=== PATIENT | male | born 1965 | race Caucasian/White ===

== ENCOUNTER 2019-07-19 12:40 | Emergency (ER) | payer OTHER ==
[~2019-07-19] VITALS: Ht 185.4 cm; Wt 77.1 kg
[2019-07-19 14:01] LABS: Basophils # (auto) 0 uL; Basophils % (auto) 0.7 % (0.0-2.0); Eosinophils # (auto) 0 uL; Hematocrit 43.9 % (41.0-53.0); Hemoglobin 15.1 g/dL (13.5-17.5); Lymphocytes # (auto) 0.6 uL; Lymphocytes % (auto) 19.2 % (10.0-50.0); Mean Corpuscular Hemoglobin 31.6 pg (28.0-32.0); Mean Corpuscular Hgb Conc. 34.4 g/dL (32.0-36.0); Monocytes # (auto) 0.2 uL; Monocytes % (auto) 7.4 % (0.0-12.0); Neutrophils # (auto) 2.3 uL; Neutrophils % (auto) 72.7 % (37.0-80.0); Nucleated Red Blood Cells % 0.1 %; Platelet Count (auto) 123 10^3/uL (140-450); Red Blood Cells 4.77 10^6/uL (4.5-5.90); White Blood Cell 3.1 10^3/uL (4.4-10.8)
[2019-07-19 14:20] LABS: Albumin 3.6 g/dL (3.4-5.0); Anion Gap 9 (5-15); Blood Urea Nitrogen 21 mg/dL (7-18); Calcium 8.4 mg/dL (8.5-10.1); Carbon Dioxide 23 mmol/L (21-32); Chloride 98 mmol/L (98-107); Glucose 98 mg/dL (74-106); Sodium 130 mmol/L (136-145)
[2019-07-19 14:25] LABS: Alanine Aminotransferase 34 U/L (16-61); Alkaline Phosphatase 89 U/L (45-117); Aspartate Aminotransferase 52 U/L (15-37); BUN/Creatinine Ratio 18.1; Bilirubin, Total 0.4 mg/dL (0.2-1.0); GFR African American 85 mL/min; GFR Non-African American 70 mL/min; Total Protein 7.4 g/dL (6.4-8.2)
[2019-07-19 14:27] VITALS: BP 109/74
[2019-07-19] MEDS ORDERED: levoFLOXacin 500MG 100 ML IV ONE (14:45)
[2019-07-19] MEDS ORDERED: IPRATROPIUM BROM 0.5 MG/2.5ML INH SOL NEB ONE (14:45)
[2019-07-19] MEDS ORDERED: ALBUTEROL SULF 2.5 MG/0.5ML(0.5%) NEB SOLN NEB ONE (14:45)
[2019-07-19] MEDS ORDERED: methylPREDNISolone SOD SUCC 125 MG/2 ML VL IV ONE (14:45)
== END 2019-07-19 16:30 | disposition home or self-care (01) ==
LOC: ER 12:45
DX: J44.1 Chronic obstructive pulmonary disease with (acute) exacerbation (principal); F17.210 Nicotine dependence, cigarettes, uncomplicated; Z86.711 Personal history of pulmonary embolism
CPT/HCPCS: 36415; 71046; 80053; 84484; 85025; 93005; 94640; 96365; 96375; 99285; J1956; J2930; J7611; J7644

== ENCOUNTER 2019-07-26 20:29 | Inpatient (IN) | payer OTHER ==
[~2019-07-26] VITALS: Ht 182.9 cm; Wt 62.0 kg
[2019-07-26] MEDS ORDERED: methylPREDNISolone SOD SUCC 125 MG/2 ML VL IV ONE (21:30)
[2019-07-26] MEDS ORDERED: ALBUTEROL SULF 2.5 MG/0.5ML(0.5%) NEB SOLN HHN ONE (21:30)
[2019-07-26] MEDS ORDERED: IPRATROPIUM BROM 0.5 MG/2.5ML INH SOL HHN ONE (21:30)
[2019-07-26 22:33] LABS: Basophils # (auto) 0 uL; Basophils % (auto) 0.2 % (0.0-2.0); Eosinophils # (auto) 0 uL; Hematocrit 41.4 % (41.0-53.0); Lymphocytes # (auto) 0.4 uL; Lymphocytes % (auto) 2.2 % (10.0-50.0); Mean Corpuscular Hemoglobin 30.6 pg (28.0-32.0); Mean Corpuscular Hgb Conc. 33.7 g/dL (32.0-36.0); Monocytes # (auto) 1.6 uL; Monocytes % (auto) 8.3 % (0.0-12.0); Neutrophils # (auto) 17.7 uL; Neutrophils % (auto) 89.3 % (37.0-80.0); Platelet Count (auto) 337 10^3/uL (140-450); Red Blood Cells 4.56 10^6/uL (4.5-5.90); Red Cell Distribution Width 13.1 % (11.8-14.3); White Blood Cell 19.8 10^3/uL (4.4-10.8)
[2019-07-26 22:49] LABS: Albumin 2.5 g/dL (3.4-5.0); Anion Gap 8 (5-15); Blood Urea Nitrogen 21 mg/dL (7-18); Calcium 8.2 mg/dL (8.5-10.1); Carbon Dioxide 22 mmol/L (21-32); Chloride 94 mmol/L (98-107); Glucose 151 mg/dL (74-106); Potassium 4.1 mmol/L (3.5-5.1); Sodium 124 mmol/L (136-145)
[2019-07-26 22:52] LABS: Alanine Aminotransferase 23 U/L (16-61); Aspartate Aminotransferase 13 U/L (15-37); BUN/Creatinine Ratio 19.1; GFR African American 90 mL/min; GFR Non-African American 74 mL/min
[2019-07-26 22:57] LABS: Alkaline Phosphatase 93 U/L (45-117); Bilirubin, Total 0.9 mg/dL (0.2-1.0); Total Protein 7.5 g/dL (6.4-8.2)
[2019-07-27] MEDS ORDERED: PIPERACILLIN-TAZOB 3.375GM 100 ML IV ONE (01:30)
[2019-07-27] MEDS: SODIUM CHLORIDE 0.9% 1,000 ML IV SCH ×2 (03:06→18:26)
[2019-07-27] MEDS: levoFLOXacin 750MG 150 ML IV SCH (03:28)
[2019-07-27] MEDS: HYDROcodone-ACET 5/325MG TAB PO PRN ×2 (04:14→21:20)
[2019-07-27] MEDS: ALBUTEROL SULF 2.5 MG/0.5ML(0.5%) NEB SOLN NEB SCH ×3 (05:45→19:20)
[2019-07-27 06:11] VITALS: BP 104/64
[2019-07-27] MEDS: FAMOTIDINE 20 MG TAB PO SCH ×2 (09:50→21:20)
[2019-07-27 13:12] LABS: Basophils # (auto) 0 uL; Basophils % (auto) 0.3 % (0.0-2.0); Eosinophils # (auto) 0 uL; Eosinophils % (auto) 0.1 % (0.0-7.0); Hematocrit 42.5 % (41.0-53.0); Lymphocytes # (auto) 0.4 uL; Mean Corpuscular Hemoglobin 30.4 pg (28.0-32.0); Mean Corpuscular Hgb Conc. 32.9 g/dL (32.0-36.0); Mean Corpuscular Volume 92.5 fL (80.0-100.0); Monocytes # (auto) 1.3 uL; Monocytes % (auto) 6.7 % (0.0-12.0); Neutrophils # (auto) 17.5 uL; Neutrophils % (auto) 90.9 % (37.0-80.0); Platelet Count (auto) 362 10^3/uL (140-450); Red Cell Distribution Width 13.2 % (11.8-14.3); White Blood Cell 19.2 10^3/uL (4.4-10.8)
[2019-07-27 13:31] LABS: Alanine Aminotransferase 25 U/L (16-61); Albumin 2.2 g/dL (3.4-5.0); Anion Gap 8 (5-15); Aspartate Aminotransferase 15 U/L (15-37); Blood Urea Nitrogen 23 mg/dL (7-18); Calcium 8.4 mg/dL (8.5-10.1); Carbon Dioxide 23 mmol/L (21-32); Chloride 95 mmol/L (98-107); GFR African American 86 mL/min; GFR Non-African American 71 mL/min; Glucose 201 mg/dL (74-106); Potassium 5.3 mmol/L (3.5-5.1); Sodium 126 mmol/L (136-145)
[2019-07-27 13:34] LABS: Alkaline Phosphatase 97 U/L (45-117); Bilirubin, Total 0.6 mg/dL (0.2-1.0); Total Protein 7.4 g/dL (6.4-8.2)
[2019-07-27] MEDS ORDERED: VANCOMYCIN PER PHARMACY 0 MG IV SCH (15:15)
[2019-07-27] MEDS ORDERED: ENOXAPARIN SOD 40 MG/0.4 ML SYRINGE SC ONE (15:15)
[2019-07-27] MEDS ORDERED: FUROSEMIDE 40 MG/4 ML VIAL IV ONE (15:15)
--- NOTE | 2019-07-27 15:15 | NUR ---
MS admit from ER HEATHERMONTEZ admitted to tele/MS after SBAR received. Patient oriented to OMERO NATHAN, primary RN, unit, room, bed, and unit policies regarding patient care and visiting hours. patient alert and awake sitting up in bed. Pt having some shortness of breath and requesting a breathing treatment, RT paged. Pt is on 3 L NC. Bed is in lowest position, wheels are locked, side rails up x2, and call light is within reach. Patient weighed by bed scale and encouraged to call if they need something. All questions and concerns addressed, patient verbalized understanding.
[2019-07-27] MEDS ORDERED: VANCOMYCIN 1GM/250ML 250 ML IV ONE (15:30)
[2019-07-27] MEDS: VANCOMYCIN 1GM/250ML 250 ML IV SCH (16:00)
[2019-07-27 16:24] VITALS: BP 127/81
[2019-07-27] MEDS ORDERED: INFLUENZA QUAD 2019-2020 0.5ml SYRG IM ONE (16:30)
[2019-07-27] MEDS ORDERED: PNEUMOCOCCAL VACC POLYS 25 MCG/0.5 ML VIAL IM ONE (16:30)
[2019-07-27] MEDS ORDERED: ENOXAPARIN SOD 30 MG/0.3 ML SYRINGE SC ONE (17:00)
[2019-07-27] MEDS ORDERED: predniSONE 20 MG TAB PO ONE (17:00)
[2019-07-27] MEDS ORDERED: IOHEXOL 350 MG/ML 100ML IJ ONE (17:06)
[2019-07-27] MEDS: PIPERACILLIN-TAZOB 3.375GM 100 ML IV SCH (18:27)
--- NOTE | 2019-07-27 19:21 | NUR ---
Closing Note Patient awake and alert sitting up in bed. No S/S of distress/SOB or pain. Care endorsed to Allie SABILLON RN.
--- NOTE | 2019-07-27 19:25 | NUR ---
Opening Shift Note Assumed care of patient, awake and alert. Instructed on POC and to call for assist PRN, will continue to monitor for changes Q1hr and PRN. PATIENT RESTING IN BED, WITH CALL LIGHT IN REACH, BED IN LOWEST POSITION AND SIDE RALES UP X2.
[2019-07-27 20:10] VITALS: BP 128/77
[2019-07-27 21:22] VITALS: BP 128/77
[2019-07-28] VITALS (7 sets, daily range): BP systolic 91–127; BP diastolic 46–80
[2019-07-28] MEDS: PIPERACILLIN-TAZOB 3.375GM 100 ML IV SCH ×5 (00:04→23:55)
[2019-07-28] MEDS: ALBUTEROL SULF 2.5 MG/0.5ML(0.5%) NEB SOLN NEB SCH ×3 (00:30→12:00)
[2019-07-28] MEDS: levoFLOXacin 750MG 150 ML IV SCH (02:51)
[2019-07-28] MEDS: ONDANSETRON HCL 4 MG/2 ML VIAL IV PRN ×2 (02:52→05:57)
[2019-07-28] MEDS: SODIUM CHLORIDE 0.9% 1,000 ML IV SCH ×2 (04:26→18:30)
[2019-07-28] MEDS: VANCOMYCIN 1GM/250ML 250 ML IV SCH ×2 (04:26→16:58)
[2019-07-28] MEDS: HYDROcodone-ACET 5/325MG TAB PO PRN ×2 (04:27→10:54)
[2019-07-28 07:36] LABS: BUN/Creatinine Ratio 27.6; Calcium 8.3 mg/dL (8.5-10.1); Potassium 4.1 mmol/L (3.5-5.1)
--- NOTE | 2019-07-28 07:48 | NUR ---
RECEIVED REPORT AND ASSUMED CARE OF PT. A/OX4. DENIED S/S ACUTE DISTRESS. UPDATE PT WITH POC. BED AT LOWEST POSITION. CALL LIGHT AND BELONGINGS WITHIN REACH. WILL CONT TO MONITOR.
[2019-07-28 07:55] LABS: Basophils # (auto) 0.1 uL; Basophils % (auto) 0.3 % (0.0-2.0); Eosinophils # (auto) 0 uL; Hematocrit 36.8 % (41.0-53.0); Hemoglobin 12.4 g/dL (13.5-17.5); Lymphocytes # (auto) 0.5 uL; Lymphocytes % (auto) 2.6 % (10.0-50.0); Mean Corpuscular Hemoglobin 30.7 pg (28.0-32.0); Mean Corpuscular Hgb Conc. 33.7 g/dL (32.0-36.0); Mean Corpuscular Volume 91.3 fL (80.0-100.0); Monocytes # (auto) 1.1 uL; Monocytes % (auto) 6.2 % (0.0-12.0); Neutrophils # (auto) 16.2 uL; Neutrophils % (auto) 90.9 % (37.0-80.0); Platelet Count (auto) 377 10^3/uL (140-450); Red Blood Cells 4.03 10^6/uL (4.5-5.90); Red Cell Distribution Width 13.1 % (11.8-14.3); White Blood Cell 17.8 10^3/uL (4.4-10.8)
[2019-07-28] MEDS ORDERED: SODIUM CHL 0.9% 1000 ML BAG XX ONE (10:30)
[2019-07-28] MEDS: ENOXAPARIN SOD 40 MG/0.4 ML SYRINGE SC SCH (10:54)
[2019-07-28] MEDS: FAMOTIDINE 20 MG TAB PO SCH ×2 (10:55→22:26)
[2019-07-28] MEDS: predniSONE 20 MG TAB PO SCH (10:55)
--- NOTE | 2019-07-28 11:50 | NUR ---
ABG DRAWN PER DR HUGHES'S ORDERS. RESULTS TO FOLLOW
--- NOTE | 2019-07-28 19:03 | NUR ---
PT RESTING IN BED. NO S/S ACUTE DISTRESS NOTED. ENDORSED CARE TO NIGHT NURSE.
--- NOTE | 2019-07-28 19:25 | NUR ---
Opening Shift Note Assumed care of patient, awake and alert. No S/S of distress/SOB or pain. Instructed on POC and to call for assist PRN, will continue to monitor for changes Q1hr and PRN. PATIENT RESTING IN BED, CALL LIGHT IN HAND, BED IN LOWEST POSITION, SIDE RALES UP X2.
[2019-07-28] MEDS: TEMAZEPAM 15 MG CAP PO PRN (22:27)
[2019-07-29] MEDS: ALBUTEROL SULF 2.5 MG/0.5ML(0.5%) NEB SOLN NEB SCH ×4 (00:14→17:58)
[2019-07-29] MEDS: levoFLOXacin 750MG 150 ML IV SCH (02:54)
[2019-07-29] MEDS: VANCOMYCIN 1GM/250ML 250 ML IV SCH ×3 (04:18→21:58)
[2019-07-29] MEDS: HYDROcodone-ACET 5/325MG TAB PO PRN ×2 (04:35→19:58)
[2019-07-29 05:00] VITALS: BP 93/50
[2019-07-29 05:54] LABS: BUN/Creatinine Ratio 29.2; Calcium 8.4 mg/dL (8.5-10.1); Potassium 4.7 mmol/L (3.5-5.1)
[2019-07-29] MEDS: PIPERACILLIN-TAZOB 3.375GM 100 ML IV SCH ×2 (06:14→12:41)
[2019-07-29] MEDS: SODIUM CHLORIDE 0.9% 1,000 ML IV SCH ×2 (07:50→21:10)
[2019-07-29 08:45] VITALS: BP 96/54
[2019-07-29] MEDS: predniSONE 20 MG TAB PO SCH (09:36)
[2019-07-29] MEDS: FAMOTIDINE 20 MG TAB PO SCH ×2 (09:36→21:59)
[2019-07-29] MEDS: ENOXAPARIN SOD 40 MG/0.4 ML SYRINGE SC SCH (09:36)
--- NOTE | 2019-07-29 12:00 | NUR ---
MIGUEL REYES REGARDING ORDER FOR DIALYSIS. AWAITING CALL BACK.
[2019-07-29 12:44] VITALS: BP 104/52
--- NOTE | 2019-07-29 15:15 | NUR ---
MIGUEL REYES REGARDING PATIENT ORDER FOR DIALYSIS AND PATIENT REPORTS NO BOWEL MOVEMENT SINCE 07/24/19. AWAITING CALL BACK.
[2019-07-29 16:33] VITALS: BP 114/70
--- NOTE | 2019-07-29 17:10 | NUR ---
SPOKE TO Kaylynn REYES REGARDING ORDER FOR DIALYSIS. INSTRUCTED TO CANCEL ORDER. INFORMED OF NO BOWEL MOVEMENT SINCE 07/24. RECEIVED ORDERS FOR LACTULOSE 30ML BID UNTIL PATIENT HAS BOWEL MOVEMENT. WILL FOLLOW THROUGH.
--- NOTE | 2019-07-29 19:10 | NUR ---
Opening Shift Note Assumed care of patient, awake and alert. No S/S of distress/SOB or pain. Instructed on POC and to call for assist PRN, will continue to monitor for changes Q1hr and PRN. PATIENT RESTING IN BED, CALL LIGHT AT HIS SIDE WITHIN REACH, BED IN LOWEST POSITION, SIDE RALES UP X2.
[2019-07-29] MEDS: LACTULOSE 20Gm/30ML SOLN PO SCH (21:59)
[2019-07-29 22:00] VITALS: BP 112/70
[2019-07-29] MEDS: TEMAZEPAM 15 MG CAP PO PRN (22:00)
[2019-07-29 23:35] LABS: Urine Bacteria FEW /hpf (None Seen); Urine Blood Negative /uL (Negative); Urine Hyaline Cast FEW /lpf (0 - 2); Urine Specific Gravity 1.026 (1.001-1.035); Urine WBC 7 /hpf (0 - 3)
[2019-07-29 23:50] LABS: Amphetamine Screen, Urine NEGATIVE (NEGATIVE); Barbiturate Scree,Urine NEGATIVE (NEGATIVE); Benzodiazephine Screen, Urine NEGATIVE (NEGATIVE); Cannabinoid Screen, Urine POSITIVE (NEGATIVE); Cocaine Screen, Urine NEGATIVE (NEGATIVE); Opiate Scree,Urine NEGATIVE (NEGATIVE); Phencyclidine Screen, Urine NEGATIVE (NEGATIVE)
[2019-07-29 23:51] LABS: Protein, Urine 70.2 mg/dL (0.0-11.9)
[2019-07-30] MEDS: ALBUTEROL SULF 2.5 MG/0.5ML(0.5%) NEB SOLN NEB SCH ×4 (00:04→18:55)
[2019-07-30] MEDS: VANCOMYCIN 1GM/250ML 250 ML IV SCH ×4 (03:12→17:45)
[2019-07-30] MEDS: levoFLOXacin 750MG 150 ML IV SCH (03:14)
[2019-07-30] MEDS: HYDROcodone-ACET 5/325MG TAB PO PRN (04:03)
[2019-07-30 05:00] VITALS: BP 125/69
[2019-07-30 05:20] LABS: BUN/Creatinine Ratio 24.1; Calcium 8.3 mg/dL (8.5-10.1)
[2019-07-30 06:04] LABS: Basophils # (auto) 0.1 uL; Basophils % (auto) 1.2 % (0.0-2.0); Eosinophils # (auto) 0 uL; Hematocrit 40.7 % (41.0-53.0); Hemoglobin 13.4 g/dL (13.5-17.5); Lymphocytes # (auto) 0.9 uL; Lymphocytes % (auto) 7.9 % (10.0-50.0); Mean Corpuscular Hemoglobin 30.9 pg (28.0-32.0); Mean Corpuscular Hgb Conc. 32.8 g/dL (32.0-36.0); Mean Corpuscular Volume 94.1 fL (80.0-100.0); Monocytes # (auto) 0.9 uL; Monocytes % (auto) 7.4 % (0.0-12.0); Neutrophils # (auto) 9.9 uL; Neutrophils % (auto) 83.5 % (37.0-80.0); Platelet Count (auto) 331 10^3/uL (140-450); Red Blood Cells 4.33 10^6/uL (4.5-5.90); Red Cell Distribution Width 13.9 % (11.8-14.3); White Blood Cell 11.9 10^3/uL (4.4-10.8)
--- NOTE | 2019-07-30 07:42 | NUR ---
VANCOMYCIN NOT ADMINISTERED ON TIME VANCOMYCIN WAS HUNG BUT DID NOT RUN, RESTARTED AT 0743.
[2019-07-30 08:51] VITALS: BP 125/69
[2019-07-30 09:00] VITALS: BP 104/62
--- NOTE | 2019-07-30 09:53 | NUR ---
RECEIVED CRITICAL VANCOMYCIN 34.2 INFORMED Kaylynn ZAMORA. ORDERED TO CHECK VANCOMYCIN AGAIN AT 1400PM
[2019-07-30] MEDS: LACTULOSE 20Gm/30ML SOLN PO SCH ×2 (10:30→22:20)
[2019-07-30] MEDS: FAMOTIDINE 20 MG TAB PO SCH ×2 (10:30→22:20)
[2019-07-30] MEDS: predniSONE 20 MG TAB PO SCH (10:30)
[2019-07-30 10:58] LABS: BUN/Creatinine Ratio 23.8; Calcium 8.6 mg/dL (8.5-10.1); Potassium 4.5 mmol/L (3.5-5.1)
[2019-07-30] MEDS: ENOXAPARIN SOD 40 MG/0.4 ML SYRINGE SC SCH (11:37)
[2019-07-30] MEDS: SODIUM CHLORIDE 0.9% 1,000 ML IV SCH ×2 (11:37→23:50)
[2019-07-30 13:00] VITALS: BP 87/68
--- NOTE | 2019-07-30 15:28 | NUR ---
NUTRITION ASSESSMENT NOTES Please refer to link notes of nutrition screen form filed under the intervention section of the plan of care for further details. Est. Needs based on IBW (81 kg): 2050 kcal to 2450 kcal (25-30 kcal/kgIBW), 81 gms to 97 gms pro (1.0-1.2 gms/kgIBW). Will continue to monitor pertinent labs and reassess nutrient needs prn Thank you. Addendum: 07/30/19 at [address] Amended: Links added.
[2019-07-30] MEDS ORDERED: VANCOMYCIN 1GM/250ML 250 ML IV SCH (16:00)
[2019-07-30 17:00] VITALS: BP 106/73
[2019-07-30 22:00] VITALS: BP 132/77
[2019-07-30] MEDS: TEMAZEPAM 15 MG CAP PO PRN (22:20)
[2019-07-31] MEDS: ALBUTEROL SULF 2.5 MG/0.5ML(0.5%) NEB SOLN NEB SCH ×4 (00:44→18:58)
[2019-07-31] MEDS: VANCOMYCIN 1GM/250ML 250 ML IV SCH (01:59)
[2019-07-31] MEDS: levoFLOXacin 750MG 150 ML IV SCH (03:16)
[2019-07-31 05:00] VITALS: BP 114/63
[2019-07-31 05:39] LABS: Basophils # (auto) 0 uL; Basophils % (auto) 0.1 % (0.0-2.0); Eosinophils # (auto) 0 uL; Hematocrit 36.8 % (41.0-53.0); Hemoglobin 12.1 g/dL (13.5-17.5); Lymphocytes # (auto) 0.7 uL; Lymphocytes % (auto) 5.6 % (10.0-50.0); Mean Corpuscular Hemoglobin 30.7 pg (28.0-32.0); Monocytes # (auto) 0.7 uL; Monocytes % (auto) 5.4 % (0.0-12.0); Neutrophils # (auto) 10.9 uL; Neutrophils % (auto) 88.9 % (37.0-80.0); Nucleated Red Blood Cells % 0.4 %; Platelet Count (auto) 320 10^3/uL (140-450); Red Blood Cells 3.96 10^6/uL (4.5-5.90); Red Cell Distribution Width 14.2 % (11.8-14.3); White Blood Cell 12.2 10^3/uL (4.4-10.8)
[2019-07-31 06:02] LABS: BUN/Creatinine Ratio 22.8; Potassium 3.8 mmol/L (3.5-5.1)
[2019-07-31 06:14] LABS: INR 1.19 (0.9-1.15); Partial Thromboplastin Time 29.3 sec (23.64-32.05)
--- NOTE | 2019-07-31 07:53 | NUR ---
OPENING SHIFT NOTE Assumed care of patient. PT is awake and alert. AWAITING CALL FROM GRAIN MILL WORKER FOR SCHEDULED PROCEDURE. Instructed on POC and to call for assist PRN, will continue to monitor for changes Q1hr and PRN. PATIENT RESTING IN BED, WITH CALL LIGHT IN REACH, BED IN LOWEST POSITION AND SIDE RALES UP X2.
--- NOTE | 2019-07-31 08:00 | NUR ---
TRANSPORTING PT TO SURFBOARD MAKER FOR SCHEDULED PROCEDURE. PT RESTING COMFORTABLY. PT ON 6L O2 VIA NC. RESPIRATIONS 24/MIN. NO SIGNS OF DISTRESS NOTED.
[2019-07-31] MEDS ORDERED: fentaNYL CITRATE 100 MCG/2 ML VL IV ONE (08:15)
[2019-07-31] MEDS ORDERED: LIDOCAINE VISCOUS 2% 15ML UD PO ONE (08:15)
[2019-07-31] MEDS ORDERED: MIDAZOLAM HCL 1MG/1ML-2 ML VIAL IV ONE (08:15)
--- NOTE | 2019-07-31 08:30 | NUR ---
NOTE: RECEIVED PATIENT IN THERMAL SPRAY OPERATOR WITH INCREASED RESPIRATORY RATE AND ON 6-7LPM NASAL CANNULA. SP02 97%, PATIENT HAS STRONG PRODUCTIVE COUGH. NOTIFIED DR HAHN OF PATIENT'S STATUS. DR HAHN ARRIVED ST BEDSIDE AND ASSESSED PATIENT. RECEIVED ORDERS FOR STAT ABG AND CANCELLATION OF NILE AT THIS TIME. PATIENT REPORT GIVEN TO PRIMARY RN WILL AND ENDORSED BACK.
--- NOTE | 2019-07-31 08:40 | NUR ---
RT AT BEDSIDE, ABG DRAWN. RESULTS TO FOLLOW
--- NOTE | 2019-07-31 08:45 | NUR ---
RECEIVED PT BACK FROM CONSULTING ACTUARY. O2 SET AT 6L VIA NC. RESPIRATIONS AT 40/MIN. CONSULTING ACTUARY NURSES STATED PT COULD NOT HAVE PROCEDURE AT THIS TIME PER DR HAHN. STAT ABG ORDERED. Addendum: 07/31/19 at 0902 by MANN DAVIS RN PT SAT AT 93%. ABG PERFORMED. RT REPORTED NORMAL. WILL NOTIFY
[2019-07-31 09:00] VITALS: BP 100/58
--- NOTE | 2019-07-31 09:12 | NUR ---
CALLED AND REPORTED ABG RESULTS TO DR ZAMORA. NO NEW ORDERS RECEIVED. PER , AWAIT CONSULT FROM DR HUGHES. WILL CONTINUE TO MONITOR PT.
[2019-07-31] MEDS ORDERED: metroNIDAZOLE 500MG/100ML 100 ML IV ONE (10:30)
[2019-07-31] MEDS ORDERED: FUROSEMIDE 40 MG/4 ML VIAL IV ONE (10:30)
[2019-07-31] MEDS: FAMOTIDINE 20 MG TAB PO SCH ×2 (10:44→22:21)
[2019-07-31] MEDS: LACTULOSE 20Gm/30ML SOLN PO SCH ×2 (10:44→22:00)
[2019-07-31] MEDS: ENOXAPARIN SOD 40 MG/0.4 ML SYRINGE SC SCH (10:45)
[2019-07-31] MEDS: LINEZOLID 600MG/300ML 300 ML IV SCH ×2 (10:46→22:22)
[2019-07-31 13:00] VITALS: BP 108/67
[2019-07-31] MEDS: metroNIDAZOLE 500MG/100ML 100 ML IV SCH ×2 (15:25→21:10)
[2019-07-31 17:00] VITALS: BP 107/50
[2019-07-31] MEDS: FUROSEMIDE 40 MG/4 ML VIAL IV SCH (18:16)
[2019-07-31] MEDS: ACETAMINOPHEN 325 MG TAB PO PRN (18:17)
--- NOTE | 2019-07-31 19:03 | NUR ---
PT REPORTED PHONE NUMBER OF BROTHER ([email or web address]). UPDATED FAMILY CONTACT INFO IN CHART.
--- NOTE | 2019-07-31 19:30 | NUR ---
assumed care, pt. awake, weak in appearance, instructed pt. npo after mn, no c/o pain, not in distress.
[2019-07-31 22:00] VITALS: BP 124/83
[2019-08-01] MEDS: ALBUTEROL SULF 2.5 MG/0.5ML(0.5%) NEB SOLN NEB SCH ×4 (00:16→17:59)
[2019-08-01 05:00] VITALS: BP 98/55
[2019-08-01 05:27] LABS: INR 1.23 (0.9-1.15)
[2019-08-01] MEDS: FUROSEMIDE 40 MG/4 ML VIAL IV SCH (05:35)
[2019-08-01] MEDS: metroNIDAZOLE 500MG/100ML 100 ML IV SCH ×3 (05:35→21:41)
[2019-08-01 05:36] LABS: BUN/Creatinine Ratio 28.7; Calcium 7.5 mg/dL (8.5-10.1); Potassium 3.6 mmol/L (3.5-5.1)
[2019-08-01 05:52] LABS: Basophils # (auto) 0 uL; Basophils % (auto) 0.1 % (0.0-2.0); Eosinophils # (auto) 0 uL; Hematocrit 34.3 % (41.0-53.0); Hemoglobin 11.6 g/dL (13.5-17.5); Lymphocytes # (auto) 0.7 uL; Lymphocytes % (auto) 4.7 % (10.0-50.0); Mean Corpuscular Hemoglobin 31.1 pg (28.0-32.0); Mean Corpuscular Hgb Conc. 33.9 g/dL (32.0-36.0); Mean Corpuscular Volume 91.7 fL (80.0-100.0); Monocytes # (auto) 0.6 uL; Neutrophils # (auto) 12.9 uL; Neutrophils % (auto) 91.2 % (37.0-80.0); Platelet Count (auto) 281 10^3/uL (140-450); Red Blood Cells 3.74 10^6/uL (4.5-5.90); Red Cell Distribution Width 13.8 % (11.8-14.3); White Blood Cell 14.1 10^3/uL (4.4-10.8)
--- NOTE | 2019-08-01 07:38 | NUR ---
OPENING SHIFT NOTE Assumed care of patient. PT is awake and alert. PT ready for procedure. Consents are signed. Instructed on POC and to call for assist PRN, will continue to monitor for changes Q1hr and PRN. PATIENT RESTING IN BED, WITH CALL LIGHT IN REACH, BED IN LOWEST POSITION AND SIDE RALES UP X2. Will continue to monitor Q1HR and PRN.
[2019-08-01 08:39] VITALS: BP 98/56
[2019-08-01] MEDS: LACTULOSE 20Gm/30ML SOLN PO SCH ×2 (10:00→21:42)
[2019-08-01] MEDS: LINEZOLID 600MG/300ML 300 ML IV SCH ×2 (12:17→23:00)
[2019-08-01] MEDS: levoFLOXacin 500 MG TAB PO SCH (12:18)
[2019-08-01] MEDS: FAMOTIDINE 20 MG TAB PO SCH ×2 (12:18→21:42)
[2019-08-01] MEDS: ENOXAPARIN SOD 40 MG/0.4 ML SYRINGE SC SCH (12:18)
[2019-08-01 12:53] VITALS: BP 96/60
--- NOTE | 2019-08-01 15:54 | NUR ---
assessment Patient is a 54 year old male who is alert and oriented. Prior to admission patient lived home with family and functioned independently. Patient informed me he is able to care for his own ADLs. Per patient he will return home to his prior living arrangements post discharge and family will transport him home. Patient informed me he moved here from [place]. I informed patient to change his insurance to [facility]. Patient said he would do the change. Patients post discharge needs to be determined prior to discharge. I informed patient he has a right to speak to a addiction social worker regarding all care. I informed patient he has a right to participate in any and all discharge planning. Patient does not have a POA and advanced directive. I have offered patient information on POA and advanced directives. I informed the patient the advantages and benefits of having an Advanced Directive. Patient verbalized understanding and agreed to discharge plan. Addendum: 08/01/19 at 1602 by Ximena NICHOLSON Amended: Links added.
[2019-08-01 16:57] VITALS: BP 103/51
--- NOTE | 2019-08-01 18:00 | NUR ---
DNR SIGNED AND PLACED IN HARD CHART PER PT'S WISHES. CODE STATUS UPDATED.
[2019-08-01 20:15] VITALS: BP 106/55
--- NOTE | 2019-08-01 20:15 | NUR ---
Opening Shift Note Assumed care of patient, awake and alert. No S/S of distress/SOB. Patient is on 2 liters of oxygen via nasal cannula. Respirations even and unlabored. Instructed on POC and to call for assist PRN, will continue to monitor for changes Q1hr and PRN.
[2019-08-01] MEDS: HYDROcodone-ACET 5/325MG TAB PO PRN (21:42)
[2019-08-01 22:00] VITALS: BP 106/55
--- NOTE | 2019-08-01 23:00 | NUR ---
Temperature reassessed and is 98.4 F. Patient asymptomatic.
[2019-08-02] VITALS (7 sets, daily range): BP systolic 86–141; BP diastolic 48–88
--- NOTE | 2019-08-02 | NUR ---
Patient given supplies for bed bath per patient request.
[2019-08-02] MEDS: ALBUTEROL SULF 2.5 MG/0.5ML(0.5%) NEB SOLN NEB SCH ×5 (00:43→18:04)
--- NOTE | 2019-08-02 00:50 | NUR ---
Barrier cream and sacral Optifoam placed on patient's sacrum due to blanchable redness.
[2019-08-02] MEDS: TEMAZEPAM 15 MG CAP PO PRN ×2 (01:02→21:13)
[2019-08-02 05:31] LABS: Basophils # (auto) 0 uL; Eosinophils # (auto) 0 uL; Eosinophils % (auto) 0.2 % (0.0-7.0); Hematocrit 32.4 % (41.0-53.0); Hemoglobin 11.1 g/dL (13.5-17.5); Lymphocytes # (auto) 0.9 uL; Lymphocytes % (auto) 5.8 % (10.0-50.0); Mean Corpuscular Hemoglobin 31.3 pg (28.0-32.0); Mean Corpuscular Hgb Conc. 34.3 g/dL (32.0-36.0); Mean Corpuscular Volume 91.3 fL (80.0-100.0); Monocytes # (auto) 0.6 uL; Monocytes % (auto) 3.8 % (0.0-12.0); Neutrophils # (auto) 14.5 uL; Neutrophils % (auto) 90.2 % (37.0-80.0); Nucleated Red Blood Cells % 0.1 %; Platelet Count (auto) 279 10^3/uL (140-450); Red Blood Cells 3.55 10^6/uL (4.5-5.90); White Blood Cell 16.1 10^3/uL (4.4-10.8)
[2019-08-02] MEDS: metroNIDAZOLE 500MG/100ML 100 ML IV SCH ×3 (05:44→21:12)
[2019-08-02 05:53] LABS: Potassium 3.6 mmol/L (3.5-5.1)
[2019-08-02] MEDS: HYDROcodone-ACET 5/325MG TAB PO PRN ×2 (06:01→20:18)
[2019-08-02 06:12] LABS: BUN/Creatinine Ratio 35.5; Calcium 7.4 mg/dL (8.5-10.1)
--- NOTE | 2019-08-02 07:00 | NUR ---
CLOSING NOTE No S/S of distress/SOB. Patient is on 2 liters of oxygen via nasal cannula. Respirations even and unlabored.
[2019-08-02] MEDS: LACTULOSE 20Gm/30ML SOLN PO SCH ×2 (10:00→21:12)
[2019-08-02] MEDS ORDERED: FUROSEMIDE 40 MG/4 ML VIAL IV SCH (10:00)
[2019-08-02] MEDS ORDERED: FLUCONAZOLE 200MG/100ML 100 ML IV ONE (10:30)
[2019-08-02] MEDS: levoFLOXacin 500 MG TAB PO SCH (10:52)
[2019-08-02] MEDS: FAMOTIDINE 20 MG TAB PO SCH ×2 (10:52→21:12)
[2019-08-02] MEDS: LINEZOLID 600MG/300ML 300 ML IV SCH ×2 (10:53→22:11)
[2019-08-02] MEDS: IPRATROPIUM BROM 0.5 MG/2.5ML INH SOL NEB SCH ×2 (11:27→18:04)
--- NOTE | 2019-08-02 15:21 | NUR ---
PT REFUSED P.T. X 2.
[2019-08-03] MEDS: ALBUTEROL SULF 2.5 MG/0.5ML(0.5%) NEB SOLN NEB SCH ×4 (00:41→17:59)
[2019-08-03 05:00] VITALS: BP 97/62
[2019-08-03 06:16] LABS: Potassium 3.9 mmol/L (3.5-5.1)
[2019-08-03] MEDS: HYDROcodone-ACET 5/325MG TAB PO PRN ×2 (06:17→23:06)
[2019-08-03] MEDS: metroNIDAZOLE 500MG/100ML 100 ML IV SCH (06:17)
[2019-08-03 06:18] LABS: Basophils # (auto) 0 uL; Basophils % (auto) 0.1 % (0.0-2.0); Eosinophils # (auto) 0 uL; Eosinophils % (auto) 0.2 % (0.0-7.0); Hematocrit 32.6 % (41.0-53.0); Lymphocytes # (auto) 0.8 uL; Lymphocytes % (auto) 4.8 % (10.0-50.0); Mean Corpuscular Hemoglobin 30.9 pg (28.0-32.0); Mean Corpuscular Hgb Conc. 33.6 g/dL (32.0-36.0); Mean Corpuscular Volume 92.1 fL (80.0-100.0); Monocytes # (auto) 0.5 uL; Monocytes % (auto) 3.3 % (0.0-12.0); Neutrophils # (auto) 14.5 uL; Neutrophils % (auto) 91.6 % (37.0-80.0); Platelet Count (auto) 283 10^3/uL (140-450); Red Blood Cells 3.54 10^6/uL (4.5-5.90); Red Cell Distribution Width 14.1 % (11.8-14.3); White Blood Cell 15.9 10^3/uL (4.4-10.8)
[2019-08-03 06:20] LABS: BUN/Creatinine Ratio 33.5
[2019-08-03 06:21] LABS: Calcium 7.2 mg/dL (8.5-10.1)
[2019-08-03] MEDS: IPRATROPIUM BROM 0.5 MG/2.5ML INH SOL NEB SCH ×3 (06:31→17:59)
--- NOTE | 2019-08-03 07:00 | NUR ---
CLOSING NOTE No S/S of distress/SOB. Patient is on 2 liters of oxygen via nasal cannula. Respirations even and unlabored.
[2019-08-03 09:00] VITALS: BP 81/55
[2019-08-03] MEDS: levoFLOXacin 500 MG TAB PO SCH (09:57)
[2019-08-03] MEDS: LINEZOLID 600MG/300ML 300 ML IV SCH ×2 (09:57→21:34)
[2019-08-03] MEDS: LACTULOSE 20Gm/30ML SOLN PO SCH ×2 (09:57→21:36)
[2019-08-03] MEDS: FLUCONAZOLE 200MG/100ML 100 ML IV SCH (09:58)
[2019-08-03] MEDS: FAMOTIDINE 20 MG TAB PO SCH ×2 (09:58→21:34)
[2019-08-03] MEDS: SODIUM CHLORIDE 0.9% 1,000 ML IV SCH ×2 (11:03→23:50)
[2019-08-03 13:00] VITALS: BP 121/61
[2019-08-03] MEDS: metroNIDAZOLE 500 MG TAB PO SCH ×2 (15:18→21:34)
--- NOTE | 2019-08-03 15:47 | NUR ---
REPORT GIVEN TO ABHAY Andrews NO SIGNS OF DISTRESS.
[2019-08-03 17:00] VITALS: BP 109/61
--- NOTE | 2019-08-03 19:41 | NUR ---
Opening Shift Note Assumed care of patient. Patient is awake, alert, and orientated x 4. No S/S of distress/SOB or pain. Bed is in lowest position with side rails up x 2. Bed brakes are locked and call light is with in reach. Bed alarm is on. Instructed on POC and to call for assist PRN, will continue to monitor for changes Q1hr and PRN.
[2019-08-03 20:24] VITALS: BP 98/55
[2019-08-03] MEDS: TEMAZEPAM 15 MG CAP PO PRN (21:35)
[2019-08-03 22:00] VITALS: BP 97/61
[2019-08-04 04:52] LABS: Basophils # (auto) 0.2 uL; Basophils % (auto) 1.2 % (0.0-2.0); Eosinophils # (auto) 0.1 uL; Eosinophils % (auto) 0.4 % (0.0-7.0); Hematocrit 31.2 % (41.0-53.0); Hemoglobin 10.6 g/dL (13.5-17.5); Lymphocytes # (auto) 1.1 uL; Mean Corpuscular Hemoglobin 31.2 pg (28.0-32.0); Monocytes # (auto) 0.7 uL; Monocytes % (auto) 4.1 % (0.0-12.0); Neutrophils # (auto) 15.9 uL; Neutrophils % (auto) 88.3 % (37.0-80.0); Platelet Count (auto) 323 10^3/uL (140-450); Red Blood Cells 3.39 10^6/uL (4.5-5.90); Red Cell Distribution Width 14.1 % (11.8-14.3)
[2019-08-04] MEDS: metroNIDAZOLE 500 MG TAB PO SCH ×3 (05:21→22:08)
[2019-08-04 05:25] LABS: BUN/Creatinine Ratio 32.2; Calcium 7.1 mg/dL (8.5-10.1); Potassium 4.2 mmol/L (3.5-5.1)
[2019-08-04 05:58] VITALS: BP 93/58
[2019-08-04] MEDS: ALBUTEROL SULF 2.5 MG/0.5ML(0.5%) NEB SOLN NEB SCH ×3 (06:10→18:54)
[2019-08-04] MEDS: IPRATROPIUM BROM 0.5 MG/2.5ML INH SOL NEB SCH ×3 (06:10→18:54)
--- NOTE | 2019-08-04 07:10 | NUR ---
closing notes endorsed care to day shift nurseMiranda. No s/s distress/sob nor pain.
[2019-08-04 09:00] VITALS: BP 105/67
[2019-08-04] MEDS: FLUCONAZOLE 200MG/100ML 100 ML IV SCH (09:37)
[2019-08-04] MEDS: LACTULOSE 20Gm/30ML SOLN PO SCH ×2 (09:37→22:00)
[2019-08-04] MEDS: FLORASTOR (S. BOULARDII) 250 MG CAP PO SCH (09:37)
[2019-08-04] MEDS: LINEZOLID 600MG/300ML 300 ML IV SCH ×2 (09:37→22:07)
[2019-08-04] MEDS: levoFLOXacin 500 MG TAB PO SCH (09:38)
[2019-08-04] MEDS: FAMOTIDINE 20 MG TAB PO SCH (09:38)
[2019-08-04] MEDS ORDERED: MEROPENEM 1GM IVPB 100 ML IV ONE (10:15)
[2019-08-04] MEDS: SODIUM CHLORIDE 0.9% 1,000 ML IV SCH (13:15)
[2019-08-04] MEDS: MEROPENEM 1GM IVPB 100 ML IV SCH ×2 (14:00→21:11)
[2019-08-04 17:00] VITALS: BP 109/50
[2019-08-04 19:57] VITALS: BP 98/55
[2019-08-04 21:45] VITALS: BP 112/65
[2019-08-04] MEDS: HYDROcodone-ACET 5/325MG TAB PO PRN (22:08)
[2019-08-05] MEDS: SODIUM CHLORIDE 0.9% 1,000 ML IV SCH ×2 (02:30→15:50)
[2019-08-05 04:34] VITALS: BP 134/67
[2019-08-05] MEDS: metroNIDAZOLE 500 MG TAB PO SCH ×3 (05:26→22:00)
[2019-08-05] MEDS: MEROPENEM 1GM IVPB 100 ML IV SCH ×2 (05:26→22:00)
--- NOTE | 2019-08-05 05:39 | NUR ---
lab draw pt refused lab draw this morning. Pt agreed to lab draws later. Called lab to inform them. Lab suggested 1000.
[2019-08-05] MEDS: IPRATROPIUM BROM 0.5 MG/2.5ML INH SOL NEB SCH ×3 (05:57→18:17)
[2019-08-05] MEDS: ALBUTEROL SULF 2.5 MG/0.5ML(0.5%) NEB SOLN NEB SCH ×3 (05:57→18:17)
--- NOTE | 2019-08-05 07:30 | NUR ---
Opening Shift Note Assumed care of patient, awake and alert. No S/S of distress/SOB or pain. Instructed on POC and to call for assist PRN, will continue to monitor for changes Q1hr and PRN.
--- NOTE | 2019-08-05 07:50 | NUR ---
closing notes endorsed care to day shift nurseroque. No s/s distress/sob nor pain.
[2019-08-05 08:00] VITALS: BP 108/60
--- NOTE | 2019-08-05 08:00 | NUR ---
PT IS NOTED TO BE TALKING AND MUMBLING TO SELF.
[2019-08-05 09:00] VITALS: BP 108/60
[2019-08-05] MEDS ORDERED: FAMOTIDINE 20 MG TAB PO SCH (10:00)
--- NOTE | 2019-08-05 10:30 | NUR ---
PT REFUSES BLOOD DRAW. PT ALSO REFUSES BEDSIDE CARE BY CUSTOMER ACCOUNTS ADVISOR.
[2019-08-05] MEDS: FLORASTOR (S. BOULARDII) 250 MG CAP PO SCH (10:45)
[2019-08-05] MEDS: FLUCONAZOLE 200MG/100ML 100 ML IV SCH (10:45)
[2019-08-05] MEDS: LACTULOSE 20Gm/30ML SOLN PO SCH ×2 (10:45→22:00)
[2019-08-05] MEDS: LINEZOLID 600MG/300ML 300 ML IV SCH ×2 (10:45→22:00)
[2019-08-05 11:26] LABS: Basophils # (auto) 0.2 uL; Basophils % (auto) 1.3 % (0.0-2.0); Eosinophils # (auto) 0 uL; Eosinophils % (auto) 0.2 % (0.0-7.0); Hematocrit 30.4 % (41.0-53.0); Hemoglobin 9.9 g/dL (13.5-17.5); Lymphocytes # (auto) 0.7 uL; Lymphocytes % (auto) 4.8 % (10.0-50.0); Mean Corpuscular Hgb Conc. 32.7 g/dL (32.0-36.0); Mean Corpuscular Volume 91.8 fL (80.0-100.0); Monocytes # (auto) 0.5 uL; Monocytes % (auto) 3.3 % (0.0-12.0); Neutrophils # (auto) 13.8 uL; Neutrophils % (auto) 90.4 % (37.0-80.0); Platelet Count (auto) 341 10^3/uL (140-450); Red Blood Cells 3.31 10^6/uL (4.5-5.90); Red Cell Distribution Width 14.4 % (11.8-14.3); White Blood Cell 15.3 10^3/uL (4.4-10.8)
[2019-08-05 11:44] LABS: Albumin 1.1 g/dL (3.4-5.0); Calcium 7.4 mg/dL (8.5-10.1); Potassium 4.7 mmol/L (3.5-5.1)
[2019-08-05 11:49] LABS: BUN/Creatinine Ratio 34.8; Bilirubin, Total 0.3 mg/dL (0.2-1.0); Total Protein 5.8 g/dL (6.4-8.2)
--- NOTE | 2019-08-05 13:00 | NUR ---
PATIENT REFUSED HIS VITALS AND BED CHANGE
--- NOTE | 2019-08-05 16:30 | NUR ---
CALLED PT'S HOME NUMBER TO SPEAK TO FAMILY AND UPDATE PT'S MEDICAL HISTORY AND MED REC. NO ANSWER AND I WAS UNABLE TO LEAVE A MESSAGE.
--- NOTE | 2019-08-05 17:00 | NUR ---
patient refused vitals 1700
--- NOTE | 2019-08-05 17:00 | NUR ---
PT'S SISTER, WENCESLAO, CALLED. PER WENCESLAO, PT HAVE A HISTORY OF SCHIZOPHRENIA AND TAKES RISPERDAL BUT SHE DOESN'T KNOW THE DOSE. WENCESLAO STATED THAT THE PT DOESN'T HAVE ANY MORE OF HIS MEDICATIONS AND SHE'S UNABLE TO FIND THE EMPTY CONTAINERS. PER WENCESLAO, ANOTHER SISTER NAMED OMERO, IS THE ONE THAT MAKES DECISIONS FOR THE PT. NEXT OF KIN CONTACTS UPDATED.
--- NOTE | 2019-08-05 19:30 | NUR ---
CLOSING NOTES PT IN BED, WATCHING TV. NO DISTRESS NOTED. CARE ENDORSED TO NILTON FARMER. SHE'S AWARE OF PT'S UPDATED MEDICAL HISTORY AND HOME MEDICATION AND NEXT OF KIN CONTACT.
--- NOTE | 2019-08-05 19:30 | NUR ---
Opening Shift Note Assumed care of patient, awake, AAOx3, reoriented to situation. No S/S of distress/SOB or pain. On 3L oxygen via nasal cannula, ambulatory with walker at bedside. Isolation precautions in place. Bed in lowest locked position, side rails up x2, call light within reach. Instructed on POC and to call for assist PRN, will continue to monitor for changes Q1hr and PRN.
[2019-08-05 20:00] VITALS: BP 122/65
[2019-08-05 22:00] VITALS: BP 122/65
[2019-08-06 05:00] VITALS: BP 104/62
[2019-08-06] MEDS: SODIUM CHLORIDE 0.9% 1,000 ML IV SCH (05:10)
[2019-08-06 05:33] LABS: Hematocrit 28.8 % (41.0-53.0); Hemoglobin 9.7 g/dL (13.5-17.5); Mean Corpuscular Hemoglobin 30.5 pg (28.0-32.0); Mean Corpuscular Hgb Conc. 33.6 g/dL (32.0-36.0); Mean Corpuscular Volume 90.8 fL (80.0-100.0); Platelet Count (auto) 375 10^3/uL (140-450); Red Blood Cells 3.17 10^6/uL (4.5-5.90); Red Cell Distribution Width 14.4 % (11.8-14.3); White Blood Cell 13.5 10^3/uL (4.4-10.8)
[2019-08-06 05:34] LABS: Basophils % (manual) 0 (0.0-2.0); Blast Cells 0; Eosinophils % (manual) 0 (0-7); Metamyelocytes % 0; Reactive Lymphocytes 0
[2019-08-06 05:50] LABS: Albumin 1.1 g/dL (3.4-5.0); Calcium 7.4 mg/dL (8.5-10.1); Magnesium 2.4 mg/dL (1.6-2.6); Potassium 4.6 mmol/L (3.5-5.1)
[2019-08-06 05:55] LABS: BUN/Creatinine Ratio 40.4; Bilirubin, Total 0.5 mg/dL (0.2-1.0); Total Protein 5.7 g/dL (6.4-8.2)
[2019-08-06] MEDS: metroNIDAZOLE 500 MG TAB PO SCH ×3 (06:07→21:37)
[2019-08-06 06:08] LABS: Band Neutrophils % (manual) 3; Lymphocytes % (manual) 3 (10.0-50.0); Monocytes % (manual) 2 (0-12); Myelocytes % 1; Promyelocytes % 1
--- NOTE | 2019-08-06 06:15 | NUR ---
CRITICAL LAB BUN 80. MD CHACON PAGED, RETURNED CALL AND MADE AWARE OF CRITICAL LAB PER PROTOCOL. WILL CONTINUE CARE.
[2019-08-06] MEDS: IPRATROPIUM BROM 0.5 MG/2.5ML INH SOL NEB SCH ×3 (06:32→18:30)
[2019-08-06] MEDS: ALBUTEROL SULF 2.5 MG/0.5ML(0.5%) NEB SOLN NEB SCH ×3 (06:32→18:30)
[2019-08-06 09:00] VITALS: BP 101/51
[2019-08-06] MEDS ORDERED: PANTOPRAZOLE 40 MG/10 ML VIAL INJ IV ONE (09:45)
[2019-08-06] MEDS ORDERED: PANTOPRAZOLE 40 MG/10 ML VIAL INJ IV SCH (10:00)
[2019-08-06] MEDS ORDERED: PANTOPRAZOLE 40 MG TAB PO ONE (10:45)
[2019-08-06] MEDS: FLUCONAZOLE 200MG/100ML 100 ML IV SCH (11:04)
[2019-08-06] MEDS: MEROPENEM 1GM IVPB 100 ML IV SCH ×2 (11:04→21:39)
[2019-08-06] MEDS: LINEZOLID 600MG/300ML 300 ML IV SCH ×2 (11:05→21:40)
[2019-08-06] MEDS: FLORASTOR (S. BOULARDII) 250 MG CAP PO SCH (11:06)
[2019-08-06 17:00] VITALS: BP 119/70
--- NOTE | 2019-08-06 18:30 | NUR ---
Respiratory note: PT SEEN FOR SCHEDULED MED NEB TX AT 1830. PT REFUSED HIS TREATMENT AT THIS TIME, HE WAS EATING WHEN ENTERING THE ROOM AND SAID HE WANTED TO KEEP EATING. I TOLD HIM I COULD COME BACK BUT HE SHOOK HIS HEAD NO AND CONTINUED EATING. PT DISPLAYING NO SIGNS OF DISTRESS. HR 91 RR 18 POX 98% 2L NASAL CANNULA.
--- NOTE | 2019-08-06 19:41 | NUR ---
Opening Shift Note Assumed care of patient, awake, resting in bed comfortably. No S/S of distress/SOB or pain. Instructed on POC and to call for assist PRN, will continue to monitor for changes Q1hr and PRN.
[2019-08-06] MEDS: HYDROcodone-ACET 5/325MG TAB PO PRN (20:41)
[2019-08-06] MEDS: PANTOPRAZOLE 40 MG TAB PO SCH (21:36)
[2019-08-06 22:00] VITALS: BP 123/70
--- NOTE | 2019-08-07 00:27 | NUR ---
LINEN CHANGE LINEN CHANGED WITH PARTIAL BATH, PATIENT TOLERATED WELL WITH NO S/S OF DISTRESS.
--- NOTE | 2019-08-07 00:28 | NUR ---
SAMPLE SENT STOOL OCCULT BLOOD SAMPLE SENT TO LAB PER MD ORDERS.
[2019-08-07 05:00] VITALS: BP 101/55
[2019-08-07 05:52] LABS: Basophils # (auto) 0 10 ^3/uL (0-0.2); Basophils % (auto) 0.1 % (0.0-2.0); Eosinophils # (auto) 0.1 10 ^3/uL (0-0.8); Eosinophils % (auto) 0.6 % (0.0-7.0); Hemoglobin 9.5 g/dL (13.5-17.5); Lymphocytes % (auto) 9.6 % (10.0-50.0); Mean Corpuscular Hemoglobin 31.2 pg (28.0-32.0); Mean Corpuscular Hgb Conc. 33.8 g/dL (32.0-36.0); Mean Corpuscular Volume 92.3 fL (80.0-100.0); Monocytes # (auto) 0.4 10 ^3/uL (0-1.3); Neutrophils # (auto) 9.3 10 ^3/uL (1.6-8.6); Neutrophils % (auto) 85.7 % (37.0-80.0); Platelet Count (auto) 349 10^3/uL (140-450); Red Blood Cells 3.03 10^6/uL (4.5-5.90); Red Cell Distribution Width 14.4 % (11.8-14.3); White Blood Cell 10.8 10^3/uL (4.4-10.8)
[2019-08-07] MEDS: metroNIDAZOLE 500 MG TAB PO SCH ×3 (06:07→21:54)
[2019-08-07 06:10] LABS: BUN/Creatinine Ratio 48.2; Calcium 7.4 mg/dL (8.5-10.1); Potassium 4.5 mmol/L (3.5-5.1)
[2019-08-07] MEDS: ALBUTEROL SULF 2.5 MG/0.5ML(0.5%) NEB SOLN NEB SCH ×3 (07:45→18:00)
[2019-08-07] MEDS: IPRATROPIUM BROM 0.5 MG/2.5ML INH SOL NEB SCH ×3 (07:45→18:00)
[2019-08-07 09:00] VITALS: BP 122/76
[2019-08-07] MEDS: MEROPENEM 1GM IVPB 100 ML IV SCH ×2 (10:07→21:55)
[2019-08-07] MEDS: FLUCONAZOLE 200MG/100ML 100 ML IV SCH (10:07)
[2019-08-07] MEDS: LINEZOLID 600MG/300ML 300 ML IV SCH ×2 (10:08→22:14)
[2019-08-07] MEDS: FLORASTOR (S. BOULARDII) 250 MG CAP PO SCH (10:14)
[2019-08-07] MEDS: PANTOPRAZOLE 40 MG TAB PO SCH ×2 (10:14→21:53)
[2019-08-07] MEDS: SODIUM CHLORIDE 0.9% 1,000 ML IV SCH (10:15)
[2019-08-07] MEDS: ERGOCALCIFEROL 50,000 UNIT(1.25MG) CAP PO SCH (12:00)
[2019-08-07 13:00] VITALS: BP 115/69
[2019-08-07 16:34] VITALS: BP 126/73
[2019-08-07] MEDS: HYDROcodone-ACET 5/325MG TAB PO PRN (17:49)
--- NOTE | 2019-08-07 18:43 | NUR ---
Respiratory note: AT BEDSIDE FOR MED NEB TX PT EATING AT THIS TIME. WILL COME BACK TO ADMINISTER NEB TX.
--- NOTE | 2019-08-07 19:05 | NUR ---
Patient care endorsed endorsed care to Emilia bridges. Patient laying in bed no acute distress or sob noted. Call light within reach.
--- NOTE | 2019-08-07 19:21 | NUR ---
Opening Shift Note Assumed care of patient, awake and alert. Resting in bed comfortably. No S/S of distress/SOB or pain. Instructed on POC and to call for assist PRN, will continue to monitor for changes Q1hr and PRN.
[2019-08-07 22:00] VITALS: BP_SYST 126; BP_SYST 134; BP_DIAS 71
[2019-08-07] MEDS: ACETAMINOPHEN 325 MG TAB PO PRN (23:04)
--- NOTE | 2019-08-08 00:03 | NUR ---
IV DC'D IV IN LEFT FOREARM, DC'D USING CLEAN TECHNIQUE, CATHETER INTACT UPON REMOVAL. PATIENT TOLERATED INTERVENTION WELL.
[2019-08-08] MEDS: HYDROcodone-ACET 5/325MG TAB PO PRN ×2 (00:23→12:25)
--- NOTE | 2019-08-08 02:17 | NUR ---
DRESSING CHANGE SACRUM AREA CLEANSED AND DRESSING CHANGED, WITH GOWN AND PARTIAL LINEN CHANGE. PATIENT TOLERATED WELL WITH NO S/S OF DISTRESS. WILL CONTINUE TO MONITOR.
[2019-08-08] MEDS: metroNIDAZOLE 500 MG TAB PO SCH ×3 (06:02→22:02)
[2019-08-08 06:16] LABS: Basophils # (auto) 0 10 ^3/uL (0-0.2); Basophils % (auto) 0.3 % (0.0-2.0); Eosinophils # (auto) 0.1 10 ^3/uL (0-0.8); Hematocrit 26.3 % (41.0-53.0); Lymphocytes # (auto) 1.2 10 ^3/uL (0.4-5.4); Lymphocytes % (auto) 14.1 % (10.0-50.0); Mean Corpuscular Hemoglobin 31.6 pg (28.0-32.0); Mean Corpuscular Hgb Conc. 34.4 g/dL (32.0-36.0); Monocytes # (auto) 0.3 10 ^3/uL (0-1.3); Monocytes % (auto) 3.6 % (0.0-12.0); Neutrophils # (auto) 7.1 10 ^3/uL (1.6-8.6); Nucleated Red Blood Cells % 0.1 %; Platelet Count (auto) 349 10^3/uL (140-450); Red Blood Cells 2.85 10^6/uL (4.5-5.90); Red Cell Distribution Width 14.4 % (11.8-14.3); White Blood Cell 8.8 10^3/uL (4.4-10.8)
[2019-08-08 06:19] LABS: Calcium 7.3 mg/dL (8.5-10.1); Potassium 4.8 mmol/L (3.5-5.1)
[2019-08-08 06:22] LABS: BUN/Creatinine Ratio 50.5
[2019-08-08] MEDS: IPRATROPIUM BROM 0.5 MG/2.5ML INH SOL NEB SCH ×3 (07:33→18:05)
[2019-08-08] MEDS: ALBUTEROL SULF 2.5 MG/0.5ML(0.5%) NEB SOLN NEB SCH ×3 (07:33→18:05)
[2019-08-08 08:50] VITALS: BP 134/71
[2019-08-08 09:00] VITALS: BP 100/67
[2019-08-08] MEDS: LINEZOLID 600MG/300ML 300 ML IV SCH (09:41)
[2019-08-08] MEDS: MEROPENEM 1GM IVPB 100 ML IV SCH ×2 (09:57→22:04)
[2019-08-08] MEDS: FLORASTOR (S. BOULARDII) 250 MG CAP PO SCH (09:57)
[2019-08-08] MEDS: PANTOPRAZOLE 40 MG TAB PO SCH ×2 (09:57→22:01)
[2019-08-08] MEDS: FLUCONAZOLE 200MG/100ML 100 ML IV SCH (09:58)
[2019-08-08] MEDS ORDERED: FUROSEMIDE 20 MG/2 ML VIAL IV ONE (10:15)
[2019-08-08] MEDS ORDERED: POTASSIUM CHL 20 Meq TABLET PO ONE (11:15)
--- NOTE | 2019-08-08 12:42 | NUR ---
NUTRITION FOLLOWUP NOTES Pt wt is 53.6 kg today Pt was awake with no relatives at bedside when rounded this morning. Pt appetite is good aeb ave 88% x4 PO intake per RN doc. Pt with no noted distress or complaints. Noted pt is missing teeth and would like a [employer] diet. Will continue to monitor and follow up prn. Est. Needs based on IBW (81 kg): 2050 kcal to 2450 kcal (25-30 kcal/kgIBW), 81 gms to 97 gms pro (1.0-1.2 gms/kgIBW). Will continue to monitor pertinent labs and reassess nutrient needs prn LABS: Cl 113 H, BUN 56 H, Ca 7.3 L, Alb 1.1 L GI: Last noted BM on 08/07/19 BS: 18 moderate risk, redness at sacrum. Please refer to wound assessment report for further details PES: 1.) Altered nutrition related lab values RT acute/chronic medical condition AEB hyperglycemia, hyponatremia, elev. BUN, hypocalcemia and severe hypoalbuminemia 2.) Increased nutrient needs RT current/chronic medical/nutritional status AEB decreased muscle mass, recorded wt of 47.7 kg, BMI 14.3 kg/m2, <75% consumed meals,mild hypoalbuminemia. Comments Will continue to monitor PO intake, pertinent labs, skin status and weight trends. F/u in 3 to 5 days. Additional Recommendation: 1.) Consider Ensure Enlive 1 carton TID. 2.) If Albumin continues trending down, consider Prostat 1 pkt BID. 3.) Consider close supervision and feeding assistance prn during meals. 4.) Consider to obtain and record actual BW based on bed scale. 5.) Refer to RD for further nutrition educ. and weight monitoring upon discharge. 6.) Continue current plan of care.
[2019-08-08 13:00] VITALS: BP 114/70
--- NOTE | 2019-08-08 13:25 | NUR ---
Regarding pain patient states "pain never went away" no distress noted. Paged MD Solis to notify. Awaiting further orders at this time. Patient provided with ice pack as requested, distraction and repositioning.
--- NOTE | 2019-08-08 14:29 | NUR ---
Spoke to MD regarding pain New orders received for Morphine from Dr Solis, aware of patient's response to [place] stating "pain never went away". No acute distress or sob noted. Will medicate as ordered
[2019-08-08] MEDS ORDERED: MORPHINE SULF INJ 2 MG/ML SYRINGE 1ML ONE (14:34)
--- NOTE | 2019-08-08 14:34 | NUR ---
Regarding med override override of morphine 1mg IV at this time, patient requesting morphine now and pharmacists has not verified meds in order to be able to pull it from [facility]. "Stock med" morphine 1mg given and charted at this time. Will cont to monitor. No acute distress or sob noted. Patient educated on s/e of morphine and to call for assistance as needed.
[2019-08-08 17:00] VITALS: BP 114/67
--- NOTE | 2019-08-08 19:00 | NUR ---
Patient care endorsed endorsed care to Emilia bridges. Patient sitting up in bed eating ice cream. No s/s of distress or sob noted. Call light within reach. Droplet precs in place per protocol.
--- NOTE | 2019-08-08 19:37 | NUR ---
Opening Shift Note Assumed care of patient, awake and alert, resting comfortably in bed. No S/S of distress/SOB or pain. Instructed on POC and to call for assist PRN, will continue to monitor for changes Q1hr and PRN.
--- NOTE | 2019-08-08 21:27 | NUR ---
IV removal IV DC'd with clean sterile technique, catheter fully intact. Pressure dressing applied to site. Patient tolerated well.
--- NOTE | 2019-08-08 21:52 | NUR ---
IV insertion IV access obtained, via clean sterile technique by inserting 22 gauge catheter at RIGHT FOREARM after 2 attempt. IV secured properly. No trauma to site. Patient tolerated well.
[2019-08-08] MEDS: MORPHINE SULF INJ 2 MG/ML SYRINGE 1ML IV PRN (21:59)
[2019-08-08 22:00] VITALS: BP 134/85
[2019-08-08] MEDS: LINEZOLID 600MG TABLET PO SCH (22:41)
--- NOTE | 2019-08-08 22:48 | NUR ---
PATIENT PROVIDED FOOD PATIENT STATED HE WAS STILL HUNGRY AFTER EATING 'ABOUT 70% OF DINNER', PATIENT WAS PROVIDED WITH SANDWICH. PATIENT SITTING UP IN BED RELAXING. WILL CONTINUE TO MONITOR.
[2019-08-09 05:00] VITALS: BP 136/81
[2019-08-09 05:17] LABS: Calcium 7.8 mg/dL (8.5-10.1)
[2019-08-09 05:22] LABS: Potassium 5.6 mmol/L (3.5-5.1)
[2019-08-09] MEDS: metroNIDAZOLE 500 MG TAB PO SCH ×3 (06:01→22:26)
--- NOTE | 2019-08-09 06:39 | NUR ---
CRITICAL LAB LAB NOTIFIED REGARDING CRITICAL LAB. HOSPITALIST PAGED. WAITING FOR FOLLOW UP.
[2019-08-09] MEDS ORDERED: SODIUM ZIRCONIUM CYCL 10 GM PAK PO ONE ×2 (06:45→08:30)
[2019-08-09] MEDS: IPRATROPIUM BROM 0.5 MG/2.5ML INH SOL NEB SCH ×3 (06:46→19:24)
[2019-08-09] MEDS: ALBUTEROL SULF 2.5 MG/0.5ML(0.5%) NEB SOLN NEB SCH ×3 (06:46→19:24)
--- NOTE | 2019-08-09 07:00 | NUR ---
PATIENT ASLEEP, EASE TO AROUSE, NO SIGNS OF SHORTNESS OF BREATH. WILL CONTINUE TO MONITOR.
[2019-08-09 08:40] VITALS: BP 134/84
[2019-08-09] MEDS: FLUCONAZOLE 200MG/100ML 100 ML IV SCH (09:23)
[2019-08-09] MEDS: PANTOPRAZOLE 40 MG TAB PO SCH ×2 (09:25→22:25)
[2019-08-09] MEDS: LINEZOLID 600MG TABLET PO SCH ×2 (09:25→22:25)
[2019-08-09] MEDS: FLORASTOR (S. BOULARDII) 250 MG CAP PO SCH (09:25)
[2019-08-09] MEDS: MORPHINE SULF INJ 2 MG/ML SYRINGE 1ML IV PRN ×2 (09:27→15:52)
[2019-08-09] MEDS: ONDANSETRON HCL 4 MG/2 ML VIAL IV PRN ×2 (09:28→15:53)
[2019-08-09] MEDS: MEROPENEM 1GM IVPB 100 ML IV SCH ×2 (09:37→17:02)
--- NOTE | 2019-08-09 09:42 | NUR ---
PT 1st AM visit, patient refused to be OOB with c/o pain. NILTON Arias was informed about pain medication. 2nd AM visit, NILTON Arias stated that patient is refusing to be OOB despite getting pain medication. Addendum: 08/09/19 at 0943 by ELO PHAM PTT Amended: Links added.
[2019-08-09] MEDS ORDERED: POTASSIUM CHL 20 Meq TABLET PO SCH (10:00)
[2019-08-09] MEDS ORDERED: FUROSEMIDE 20 MG/2 ML VIAL IV ONE (10:15)
[2019-08-09 13:00] VITALS: BP 130/81
--- NOTE | 2019-08-09 16:31 | NUR ---
re-assessment Per consult dc planning. Per patient he is still returning home with his brother Vijay [phone] in [place]. I have called and left a message for Vijay to return my call. Waiting donor services technician back now. Patient will also need an ABG on room air to determine oxygen needs. Addendum: 08/09/19 at 1634 by Ximena NICHOLSON Amended: Links added.
[2019-08-09 16:37] VITALS: BP 117/76
--- NOTE | 2019-08-09 17:00 | NUR ---
Medicated patient for pain, repositioned him for comfort. Patient has been calm and cooperative. patient seem short of breath, placed him on o2 via nasal canula.
[2019-08-09 20:00] VITALS: BP 124/64
[2019-08-09 22:00] VITALS: BP 106/61
[2019-08-09] MEDS: TEMAZEPAM 15 MG CAP PO PRN (22:26)
[2019-08-10] VITALS (7 sets, daily range): BP systolic 106–122; BP diastolic 71–81
[2019-08-10] MEDS: MEROPENEM 1GM IVPB 100 ML IV SCH (02:20)
--- NOTE | 2019-08-10 02:38 | NUR ---
PT RESTING WITH EYES CLOSED RESP EVEN UNLABORED ANS CALL GALICIA IN REACH.
[2019-08-10] MEDS: metroNIDAZOLE 500 MG TAB PO SCH ×3 (06:07→21:47)
[2019-08-10 07:02] LABS: Potassium 5.5 mmol/L (3.5-5.1)
[2019-08-10 07:06] LABS: BUN/Creatinine Ratio 46.1; Calcium 7.9 mg/dL (8.5-10.1)
--- NOTE | 2019-08-10 07:30 | NUR ---
Opening Shift Note Assumed care of patient, awake and alert. No S/S of distress/SOB or pain. Bed is low, locked with 2x side rails up. Call light is within reach. Instructed on POC and to call for assist PRN, will continue to monitor for changes Q1hr and PRN.
[2019-08-10] MEDS: IPRATROPIUM BROM 0.5 MG/2.5ML INH SOL NEB SCH ×3 (07:59→18:18)
[2019-08-10] MEDS: ALBUTEROL SULF 2.5 MG/0.5ML(0.5%) NEB SOLN NEB SCH ×3 (07:59→18:18)
[2019-08-10] MEDS ORDERED: FUROSEMIDE 20 MG/2 ML VIAL IV ONE (09:45)
[2019-08-10] MEDS: FLORASTOR (S. BOULARDII) 250 MG CAP PO SCH (10:19)
[2019-08-10] MEDS: LINEZOLID 600MG TABLET PO SCH ×2 (10:19→21:47)
[2019-08-10] MEDS: levoFLOXacin 500 MG TAB PO SCH (10:19)
[2019-08-10] MEDS: PANTOPRAZOLE 40 MG TAB PO SCH ×2 (10:19→21:48)
[2019-08-10] MEDS: FUROSEMIDE 40 MG TAB PO SCH (10:20)
[2019-08-10] MEDS: FLUCONAZOLE 200MG/100ML 100 ML IV SCH (10:21)
--- NOTE | 2019-08-10 11:27 | NUR ---
1100 08/10/19 Contacted [facility] and spoke with Joanne Finn to request that authorization be provided for patient's continued stay. Per Joanne, only the day of admission is authorized-further authorization will not be given until after patient is discharged. Faxed Notice Regarding Post Stabilization to [facility]-document scanned into [employer]. I let Joanne know that patient may be discharged home Tuesday-needing home health and possible home oxygen-she referred me to call the [facility] [phone].
[2019-08-10] MEDS ORDERED: SODIUM ZIRCONIUM CYCL 10 GM PAK PO ONE (13:45)
[2019-08-11] VITALS (9 sets, daily range): BP systolic 115–132; BP diastolic 74–88
[2019-08-11] MEDS: HYDROcodone-ACET 5/325MG TAB PO PRN (01:03)
[2019-08-11] MEDS: TEMAZEPAM 15 MG CAP PO PRN (01:48)
[2019-08-11 05:48] LABS: Basophils # (auto) 0 10 ^3/uL (0-0.2); Basophils % (auto) 0.4 % (0.0-2.0); Eosinophils # (auto) 0.1 10 ^3/uL (0-0.8); Eosinophils % (auto) 1.6 % (0.0-7.0); Hematocrit 24.8 % (41.0-53.0); Hemoglobin 8.5 g/dL (13.5-17.5); Lymphocytes % (auto) 14.4 % (10.0-50.0); Mean Corpuscular Hemoglobin 31.3 pg (28.0-32.0); Mean Corpuscular Hgb Conc. 34.1 g/dL (32.0-36.0); Mean Corpuscular Volume 91.8 fL (80.0-100.0); Monocytes # (auto) 0.2 10 ^3/uL (0-1.3); Monocytes % (auto) 3.2 % (0.0-12.0); Neutrophils # (auto) 5.7 10 ^3/uL (1.6-8.6); Neutrophils % (auto) 80.4 % (37.0-80.0); Platelet Count (auto) 278 10^3/uL (140-450); Red Cell Distribution Width 14.2 % (11.8-14.3); White Blood Cell 7.1 10^3/uL (4.4-10.8)
[2019-08-11] MEDS: IPRATROPIUM BROM 0.5 MG/2.5ML INH SOL NEB SCH ×3 (05:48→19:42)
[2019-08-11] MEDS: ALBUTEROL SULF 2.5 MG/0.5ML(0.5%) NEB SOLN NEB SCH ×3 (05:48→19:42)
[2019-08-11 06:02] LABS: Calcium 7.5 mg/dL (8.5-10.1); Potassium 5.4 mmol/L (3.5-5.1)
[2019-08-11] MEDS: metroNIDAZOLE 500 MG TAB PO SCH ×3 (07:10→22:33)
--- NOTE | 2019-08-11 07:30 | NUR ---
Opening Shift Note Assumed care of patient, awake and alert. No S/S of distress/SOB or pain. On 3L nasal cannula. Bed is low, locked with 2x side rails up. Call light is within reach. Instructed on POC and to call for assist PRN, will continue to monitor for changes Q1hr and PRN
[2019-08-11] MEDS ORDERED: SODIUM ZIRCONIUM CYCL 10 GM PAK PO ONE (09:15)
--- NOTE | 2019-08-11 09:20 | NUR ---
Dr. Alvarado Rounding Dr. Alvarado at bedside. Updated patient on POC. Will continue to monitor.
--- NOTE | 2019-08-11 10:13 | NUR ---
PT Patient looks calm and no sign of SOB but c/o numbness on his buttocks during morning PT visit. When attempting to get him OOB, patient displayed SOB and requested from this PTT to comeback later to do PT. Informed patient to call RN when ready, patient agreed. Addendum: 08/11/19 at 1017 by ELO PHAM PTT Amended: Links added.
[2019-08-11] MEDS: FLORASTOR (S. BOULARDII) 250 MG CAP PO SCH (10:29)
[2019-08-11] MEDS: FLUCONAZOLE 200MG/100ML 100 ML IV SCH (10:29)
[2019-08-11] MEDS: levoFLOXacin 500 MG TAB PO SCH (10:30)
[2019-08-11] MEDS: PANTOPRAZOLE 40 MG TAB PO SCH ×2 (10:30→22:32)
[2019-08-11] MEDS: FUROSEMIDE 40 MG TAB PO SCH (10:30)
[2019-08-11] MEDS: LINEZOLID 600MG TABLET PO SCH ×2 (10:31→22:32)
[2019-08-12] VITALS (7 sets, daily range): BP systolic 117–138; BP diastolic 70–80
[2019-08-12] MEDS: metroNIDAZOLE 500 MG TAB PO SCH ×3 (06:33→22:14)
[2019-08-12] MEDS: ALBUTEROL SULF 2.5 MG/0.5ML(0.5%) NEB SOLN NEB SCH ×3 (06:35→18:52)
[2019-08-12] MEDS: IPRATROPIUM BROM 0.5 MG/2.5ML INH SOL NEB SCH ×3 (06:35→18:52)
--- NOTE | 2019-08-12 07:30 | NUR ---
Opening Shift Note Assumed care of patient, awake and alert. No S/S of distress/SOB or pain. On 3L O2 via nasal cannula. Bed is low, locked with 2x side rails up. Call light is within reach. Fall precautions are in place. Instructed on POC and to call for assist PRN, will continue to monitor for changes Q1hr and PRN
--- NOTE | 2019-08-12 09:00 | NUR ---
Continuous Pulse Ox Set up by RT as per MD order.
--- NOTE | 2019-08-12 10:00 | NUR ---
SCD's Applied to both legs as per MD order.
[2019-08-12] MEDS: FLUCONAZOLE 200MG/100ML 100 ML IV SCH (10:22)
[2019-08-12] MEDS: PANTOPRAZOLE 40 MG TAB PO SCH ×2 (10:22→22:14)
[2019-08-12] MEDS: levoFLOXacin 500 MG TAB PO SCH (10:23)
[2019-08-12] MEDS: FUROSEMIDE 40 MG TAB PO SCH (10:23)
[2019-08-12] MEDS: FLORASTOR (S. BOULARDII) 250 MG CAP PO SCH (10:23)
[2019-08-12] MEDS: LINEZOLID 600MG TABLET PO SCH ×2 (10:24→22:15)
[2019-08-12] MEDS: SODIUM ZIRCONIUM CYCL 10 GM PAK PO SCH ×2 (14:01→22:14)
[2019-08-13 05:06] VITALS: BP 130/83
[2019-08-13] MEDS: SODIUM ZIRCONIUM CYCL 10 GM PAK PO SCH (06:09)
[2019-08-13] MEDS: metroNIDAZOLE 500 MG TAB PO SCH ×3 (06:09→22:46)
[2019-08-13 06:18] LABS: BUN/Creatinine Ratio 36.5; Calcium 7.8 mg/dL (8.5-10.1); Potassium 4.1 mmol/L (3.5-5.1)
--- NOTE | 2019-08-13 07:20 | NUR ---
Opening Shift Note Assumed care of patient, awake and alert. No S/S of distress/SOB or pain.O2 at 2 liters nasal cannula,continues pulse oximeter in use saturating 96%, Instructed on POC and to call for assist PRN, will continue to monitor for changes Q1hr and PRN.
[2019-08-13] MEDS: ALBUTEROL SULF 2.5 MG/0.5ML(0.5%) NEB SOLN NEB SCH ×3 (07:38→18:53)
[2019-08-13] MEDS: IPRATROPIUM BROM 0.5 MG/2.5ML INH SOL NEB SCH ×3 (07:38→18:53)
--- NOTE | 2019-08-13 07:50 | NUR ---
OOB UP IN BEDSIDE COMMODE,HAD A LARGE BM
[2019-08-13 09:00] VITALS: BP 126/81
--- NOTE | 2019-08-13 09:10 | NUR ---
0900 08/13/19 I called [facility] to discuss patient's discharge planning needs. Per Ani, when we have order it needs to be faxed to [phone] and their manager case will work on it.
[2019-08-13] MEDS: PANTOPRAZOLE 40 MG TAB PO SCH ×2 (11:19→22:45)
[2019-08-13] MEDS: FUROSEMIDE 40 MG TAB PO SCH (11:19)
[2019-08-13] MEDS: FLORASTOR (S. BOULARDII) 250 MG CAP PO SCH (11:19)
--- NOTE | 2019-08-13 11:35 | NUR ---
Respiratory note: PT DOES NOT QUALIFY FOR HOME O2 PER ABG PO2 RESULT OF 60.1 ON RA. RN MADE AWARE.
--- NOTE | 2019-08-13 12:58 | NUR ---
I faxed home nebulizer order to [facility] (fax [phone]).
[2019-08-13 13:00] VITALS: BP 136/84
--- NOTE | 2019-08-13 14:11 | NUR ---
Faxed additional requested clinical information to [facility].
--- NOTE | 2019-08-13 14:19 | NUR ---
Received phone call from [facility] KENY letting me know that [facility] will deliver the home nebulizer to bedside within the hour.
--- NOTE | 2019-08-13 15:15 | NUR ---
NEBULIZER DELIVER AT BEDSIDE
[2019-08-13 16:46] VITALS: BP 142/86
--- NOTE | 2019-08-13 19:22 | NUR ---
REPORT GIVEN TO INCOMING NOC SHIFT RN,NO DISTRESS NO DISCOMFORT
[2019-08-13] MEDS: ACETAMINOPHEN 325 MG TAB PO PRN (20:31)
[2019-08-13] MEDS: DOXYCYCLINE 100 MG TAB/CAP PO SCH (22:44)
[2019-08-13 23:18] VITALS: BP 134/81
[2019-08-14 05:14] LABS: Basophils # (auto) 0 10 ^3/uL (0-0.2); Basophils % (auto) 0.7 % (0.0-2.0); Eosinophils # (auto) 0.1 10 ^3/uL (0-0.8); Eosinophils % (auto) 2.7 % (0.0-7.0); Hemoglobin 8.3 g/dL (13.5-17.5); Lymphocytes # (auto) 1.1 10 ^3/uL (0.4-5.4); Monocytes # (auto) 0.2 10 ^3/uL (0-1.3); Platelet Count (auto) 244 10^3/uL (140-450)
[2019-08-14 05:16] LABS: Hematocrit 24.1 % (41.0-53.0); Lymphocytes % (auto) 24.9 % (10.0-50.0); Mean Corpuscular Hemoglobin 31.7 pg (28.0-32.0); Mean Corpuscular Hgb Conc. 34.6 g/dL (32.0-36.0); Mean Corpuscular Volume 91.6 fL (80.0-100.0); Monocytes % (auto) 5.1 % (0.0-12.0); Neutrophils % (auto) 66.6 % (37.0-80.0); Nucleated Red Blood Cells % 0.1 %; Red Blood Cells 2.63 10^6/uL (4.5-5.90); Red Cell Distribution Width 14.2 % (11.8-14.3); White Blood Cell 4.4 10^3/uL (4.4-10.8)
[2019-08-14 05:30] LABS: BUN/Creatinine Ratio 38.1; Calcium 7.7 mg/dL (8.5-10.1)
[2019-08-14 05:44] VITALS: BP 126/76
[2019-08-14] MEDS: IPRATROPIUM BROM 0.5 MG/2.5ML INH SOL NEB SCH ×2 (06:04→11:40)
[2019-08-14] MEDS: ALBUTEROL SULF 2.5 MG/0.5ML(0.5%) NEB SOLN NEB SCH ×2 (06:04→11:40)
[2019-08-14] MEDS: metroNIDAZOLE 500 MG TAB PO SCH ×2 (06:42→15:13)
--- NOTE | 2019-08-14 07:15 | NUR ---
Opening Shift Note Assumed care of patient, awake and alert. No S/S of distress/SOB or pain.on room air ,continues pulse oximeter in use saturating 94%, Instructed on POC and to call for assist PRN, will continue to monitor for changes Q1hr and PRN.
[2019-08-14 09:00] VITALS: BP 141/84
--- NOTE | 2019-08-14 09:50 | NUR ---
MD VISIT DR. ARIAS HERE TO SEE AND EXAMINED PATIENT,RECEIVED ORDER FOR DISCHARGE.
[2019-08-14] MEDS ORDERED: FLUCONAZOLE 100 MG TAB PO SCH (10:00)
[2019-08-14] MEDS: DOXYCYCLINE 100 MG TAB/CAP PO SCH (11:02)
[2019-08-14] MEDS: FLORASTOR (S. BOULARDII) 250 MG CAP PO SCH (11:02)
[2019-08-14] MEDS: PANTOPRAZOLE 40 MG TAB PO SCH (11:02)
[2019-08-14] MEDS: FUROSEMIDE 40 MG TAB PO SCH (11:04)
[2019-08-14] MEDS: ERGOCALCIFEROL 50,000 UNIT(1.25MG) CAP PO SCH (11:05)
[2019-08-14 11:25] VITALS: BP 141/84
--- NOTE | 2019-08-14 12:18 | NUR ---
JAY LovingCONTINUUM OF FARMWORKER GENERAL RN, INFORMED OF PATIENT NEEDING HELP CHANGING INSURANCE TO LOCAL INSURANCE,STATED WILL TALK TO PATIENT.
[2019-08-14 12:59] VITALS: BP 132/83
--- NOTE | 2019-08-14 18:00 | NUR ---
Discharge instructions given and explained to patient sister Monica Green as ordered. Encourage to follow up with PMD as instructed and to call Lowell Morel at [phone] to change insurance from [facility] to [facility] All questions and concerns addressed. Patient verbalized understanding. Medication reconciliation form completed and copy given to patient.Nebulizer,filled prescription medication from [facility] given to family, Pneumonia Vaccine given,(see eMAR.) IV removed with catheter intact, pressure dressing applied. Patient taken to vehicle via wheelchair with all personal belongings, accompanied by staff and family member. No distress noted at time of departure.
== END 2019-08-14 18:00 | disposition home or self-care (01) | DRG 720 ==
LOC: EDBD 20:29 → ER 20:30 → OVERFLOW 20:31 → CENTRAL 07-27 15:29
PROVIDERS: ADMIT Nurse Practitioner; ATTEND Internal Medicine
DX: A41.9 Sepsis, unspecified organism (principal); N17.0 Acute kidney failure with tubular necrosis; J96.01 Acute respiratory failure with hypoxia; J15.212 Pneumonia due to Methicillin resistant Staphylococcus aureus; E44.0 Moderate protein-calorie malnutrition; R64 Cachexia; E87.3 Alkalosis; I08.1 Rheumatic disorders of both mitral and tricuspid valves; E88.09 Other disorders of plasma-protein metabolism, not elsewhere classified; E87.1 Hypo-osmolality and hyponatremia; E87.5 Hyperkalemia; R04.2 Hemoptysis; N14.1 Nephropathy induced by other drugs, medicaments and biological substances; T50.8X5A Adverse effect of diagnostic agents, initial encounter; H40.9 Unspecified glaucoma; J43.2 Centrilobular emphysema; F12.90 Cannabis use, unspecified, uncomplicated; D64.9 Anemia, unspecified; E55.9 Vitamin D deficiency, unspecified; F17.210 Nicotine dependence, cigarettes, uncomplicated; Z68.1 Body mass index [BMI] 19.9 or less, adult; Z86.711 Personal history of pulmonary embolism; Z86.718 Personal history of other venous thrombosis and embolism; Z90.49 Acquired absence of other specified parts of digestive tract; Z83.3 Family history of diabetes mellitus; Z82.49 Family history of ischemic heart disease and other diseases of the circulatory system; Z88.0 Allergy status to penicillin
CPT/HCPCS: 36415; 36600; 71045; 71046; 71275; 76775; 80048; 80053; 80202; 80307; 81001; 82270; 82306; 82570; 82805; 83605; 83735; 83880; 83970; 84100; 84156; 84484; 85007; 85025; 85027; 85379; 85610; 85652; 85730; 86141; 86635; 86703; 86803; 87040; 87070; 87077; 87147; 87186; 87205; 87804; 93005; 93306; 93970; 94640; 96365; 96375; 97110; 97116; 97163; 97530; G0378; J1450; J1956; J2185; J2405; J2543; J3490

== ENCOUNTER 2020-05-13 11:33 | Emergency (ER) | payer MEDICAID, OTHER ==
[~2020-05-13] VITALS: Ht 185.4 cm; Wt 77.1 kg
[2020-05-13 11:53] VITALS: BP 142/97
[2020-05-13 13:39] LABS: Basophils # (auto) 0.1 10 ^3/uL (0-0.2); Basophils % (auto) 1.3 % (0.0-2.0); Eosinophils # (auto) 0.6 10 ^3/uL (0-0.8); Hematocrit 41.8 % (41.0-53.0); Lymphocytes # (auto) 2.6 10 ^3/uL (0.4-5.4); Lymphocytes % (auto) 35.4 % (10.0-50.0); Mean Corpuscular Hemoglobin 30.9 pg (28.0-32.0); Mean Corpuscular Hgb Conc. 33.5 g/dL (32.0-36.0); Mean Corpuscular Volume 92.3 fL (80.0-100.0); Monocytes # (auto) 0.5 10 ^3/uL (0-1.3); Monocytes % (auto) 7.3 % (0.0-12.0); Neutrophils # (auto) 3.5 10 ^3/uL (1.6-8.6); Platelet Count (auto) 221 10^3/uL (140-450); Red Blood Cells 4.53 10^6/uL (4.5-5.90); Red Cell Distribution Width 13.3 % (11.8-14.3); White Blood Cell 7.2 10^3/uL (4.4-10.8)
[2020-05-13 13:58] LABS: Albumin 4.2 g/dL (3.4-5.0); Potassium 4.5 mmol/L (3.5-5.1)
[2020-05-13 14:03] LABS: BUN/Creatinine Ratio 19.1; Bilirubin, Total 0.2 mg/dL (0.2-1.0); Total Protein 8.1 g/dL (6.4-8.2)
== END 2020-05-13 14:35 | disposition home or self-care (01) ==
LOC: ER 11:33
DX: R10.9 Unspecified abdominal pain (principal); R05 Cough; R06.02 Shortness of breath; K62.5 Hemorrhage of anus and rectum; F17.210 Nicotine dependence, cigarettes, uncomplicated; Z20.828 Contact with and (suspected) exposure to other viral communicable diseases; Z90.49 Acquired absence of other specified parts of digestive tract; Z88.0 Allergy status to penicillin
CPT/HCPCS: 36415; 74176; 80053; 85025; 87426

== ENCOUNTER 2022-02-15 10:54 | Inpatient (IN) | payer MEDICAID ==
[~2022-02-15] VITALS: Ht 185.4 cm; Wt 86.1 kg
[2022-02-15 12:13] LABS: INR 0.97 (0.9-1.15); Partial Thromboplastin Time 30.8 sec (24.6-33.4)
[2022-02-15 12:17] LABS: Albumin 4.2 g/dL (3.4-5.0); Calcium 9.3 mg/dL (8.5-10.1); Potassium 4.8 mmol/L (3.5-5.1)
[2022-02-15 12:21] LABS: BUN/Creatinine Ratio 20.7; Bilirubin, Total 0.7 mg/dL (0.2-1.0); Total Protein 7.9 g/dL (6.4-8.2)
[2022-02-15 12:43] LABS: Basophils # (auto) 0.1 10 ^3/uL (0-0.2); Basophils % (auto) 0.5 % (0.0-2.0); Eosinophils # (auto) 0.6 10 ^3/uL (0-0.8); Eosinophils % (auto) 4.9 % (0.0-7.0); Hematocrit 48.8 % (41.0-53.0); Lymphocytes # (auto) 2.7 10 ^3/uL (0.4-5.4); Mean Corpuscular Hemoglobin 29.8 pg (28.0-32.0); Mean Corpuscular Hgb Conc. 32.9 g/dL (32.0-36.0); Mean Corpuscular Volume 90.5 fL (80.0-100.0); Monocytes # (auto) 0.7 10 ^3/uL (0-1.3); Monocytes % (auto) 6.4 % (0.0-12.0); Neutrophils # (auto) 7.3 10 ^3/uL (1.6-8.6); Neutrophils % (auto) 64.2 % (37.0-80.0); Nucleated Red Blood Cells % 0.1 %; Red Blood Cells 5.39 10^6/uL (4.5-5.90); Red Cell Distribution Width 13.4 % (11.8-14.3); White Blood Cell 11.4 10^3/uL (4.4-10.8)
[2022-02-15] MEDS ORDERED: HEPARIN SODIUM (PORCINE) 5000 UNITS/ML 1ML VIAL IV ONE ×2 (13:30→20:45)
[2022-02-15] MEDS ORDERED: HEPARIN DRIP/D5W 100UNITS/ML 250 ML IV SCH ×5 (13:30→21:00)
[2022-02-15] MEDS ORDERED: IOHEXOL 350 MG/ML 100ML IJ ONE ×2 (14:48→16:27)
[2022-02-15 16:35] LABS: Cholesterol 188 mg/dL (< 200); Triglycerides 125 mg/dL (< 150)
[2022-02-15 16:38] LABS: HDL Cholesterol 47 mg/dL (40-59); LDL Cholesterol 118 mg/dL (< 100)
[2022-02-15] MEDS ORDERED: ESMOLOL HCL (10MG/ML) 10 ML VIAL IV ONE (16:45)
[2022-02-15] MEDS ORDERED: ESMOLOL HCL-NS 10MG/ML 250 ML IV SCH (16:45)
[2022-02-15] MEDS ORDERED: SODIUM CHLORIDE 0.9% 1,000 ML IV SCH (17:30)
[2022-02-15] MEDS ORDERED: SODIUM CHLORIDE 0.9% 1,000 ML IV ONE (19:15)
[2022-02-15] MEDS ORDERED: ONDANSETRON HCL 4 MG/2 ML VIAL IV PRN (19:30)
[2022-02-15] MEDS ORDERED: NITROGLYCERIN 0.4 MG SL TAB SL PRN (19:30)
[2022-02-15] MEDS ORDERED: MORPHINE SULFATE INJ 2 MG/ml SYRG IV PRN ×2 (19:30)
[2022-02-15 19:36] LABS: Urine Bacteria NONE SEEN /hpf (None Seen); Urine Blood Negative /uL (Negative); Urine Mucus FEW (None Seen); Urine WBC 1 /hpf (0 - 3)
[2022-02-15 19:43] LABS: Alcohol, Urine < 3.0 mg/dL (0-10); Amphetamine Screen, Urine NEGATIVE (NEGATIVE); Barbiturate Scree,Urine NEGATIVE (NEGATIVE); Benzodiazephine Screen, Urine NEGATIVE (NEGATIVE); Cannabinoid Screen, Urine POSITIVE (NEGATIVE); Cocaine Screen, Urine NEGATIVE (NEGATIVE); Opiate Scree,Urine NEGATIVE (NEGATIVE); Phencyclidine Screen, Urine NEGATIVE (NEGATIVE)
[2022-02-15 20:18] LABS: Basophils # (auto) 0.1 10 ^3/uL (0-0.2); Basophils % (auto) 0.7 % (0.0-2.0); Eosinophils # (auto) 0.5 10 ^3/uL (0-0.8); Eosinophils % (auto) 5.6 % (0.0-7.0); Hematocrit 40.5 % (41.0-53.0); Hemoglobin 13.3 g/dL (13.5-17.5); Lymphocytes # (auto) 2.4 10 ^3/uL (0.4-5.4); Lymphocytes % (auto) 28.6 % (10.0-50.0); Mean Corpuscular Hemoglobin 29.6 pg (28.0-32.0); Mean Corpuscular Hgb Conc. 32.8 g/dL (32.0-36.0); Mean Corpuscular Volume 90.2 fL (80.0-100.0); Monocytes # (auto) 0.6 10 ^3/uL (0-1.3); Monocytes % (auto) 7.2 % (0.0-12.0); Neutrophils # (auto) 4.8 10 ^3/uL (1.6-8.6); Neutrophils % (auto) 57.9 % (37.0-80.0); Nucleated Red Blood Cells % 0.1 %; Red Blood Cells 4.49 10^6/uL (4.5-5.90); Red Cell Distribution Width 13.4 % (11.8-14.3); White Blood Cell 8.2 10^3/uL (4.4-10.8)
[2022-02-15 20:32] LABS: INR 1.01 (0.9-1.15); Partial Thromboplastin Time 31.1 sec (24.6-33.4)
[2022-02-15] MEDS: SODIUM CHLORIDE 0.9% 1,000 ML IV SCH (21:33)
[2022-02-15] MEDS: ACETYLCYSTEINE ORAL for CIN 20%(200MG/ML) 4ML PO SCH (22:37)
[2022-02-15] MEDS: METOPROLOL TARTRATE 25 MG TAB PO SCH (22:45)
[2022-02-16] VITALS (7 sets, daily range): BP systolic 110–129; BP diastolic 48–79
[2022-02-16] MEDS: SODIUM CHLORIDE 0.9% 1,000 ML IV SCH ×3 (03:15→15:53)
[2022-02-16] MEDS ORDERED: HEPARIN SODIUM (PORCINE) 5000 UNITS/ML 1ML VIAL IV ONE ×3 (04:00→19:45)
[2022-02-16] MEDS ORDERED: HEPARIN DRIP/D5W 100UNITS/ML 250 ML IV SCH ×3 (04:15→15:34)
[2022-02-16 05:58] LABS: Albumin 3.3 g/dL (3.4-5.0); Basophils # (auto) 0 10 ^3/uL (0-0.2); Basophils % (auto) 0.7 % (0.0-2.0); Calcium 8.1 mg/dL (8.5-10.1); Eosinophils # (auto) 0.4 10 ^3/uL (0-0.8); Eosinophils % (auto) 5.5 % (0.0-7.0); Hematocrit 41.6 % (41.0-53.0); Hemoglobin 13.8 g/dL (13.5-17.5); Lymphocytes # (auto) 1.9 10 ^3/uL (0.4-5.4); Lymphocytes % (auto) 27.5 % (10.0-50.0); Mean Corpuscular Hemoglobin 29.6 pg (28.0-32.0); Mean Corpuscular Hgb Conc. 33.3 g/dL (32.0-36.0); Mean Corpuscular Volume 88.9 fL (80.0-100.0); Monocytes # (auto) 0.6 10 ^3/uL (0-1.3); Monocytes % (auto) 8.4 % (0.0-12.0); Neutrophils # (auto) 4.1 10 ^3/uL (1.6-8.6); Neutrophils % (auto) 57.9 % (37.0-80.0); Nucleated Red Blood Cells % 0.2 %; Potassium 4.1 mmol/L (3.5-5.1); Red Blood Cells 4.67 10^6/uL (4.5-5.90); Red Cell Distribution Width 13.5 % (11.8-14.3)
[2022-02-16 06:00] LABS: BUN/Creatinine Ratio 21.4
[2022-02-16 06:15] LABS: Bilirubin, Total 0.6 mg/dL (0.2-1.0); Total Protein 6.2 g/dL (6.4-8.2)
[2022-02-16] MEDS ORDERED: ASPirin 81 mg TAB PO SCH (10:00)
[2022-02-16] MEDS: NICOTINE 7MG/24HR TOPICAL PATCH TD SCH (10:14)
[2022-02-16] MEDS: METOPROLOL TARTRATE 25 MG TAB PO SCH ×2 (10:15→22:16)
[2022-02-16 11:51] LABS: INR 0.96 (0.9-1.15); Partial Thromboplastin Time 30.7 sec (24.6-33.4)
[2022-02-16] MEDS: ACETYLCYSTEINE ORAL for CIN 20%(200MG/ML) 4ML PO SCH ×2 (13:13→22:14)
[2022-02-16 18:52] LABS: INR 0.97 (0.9-1.15); Partial Thromboplastin Time 28.8 sec (24.6-33.4)
[2022-02-16] MEDS ORDERED: HEPARIN SODIUM (PORCINE) 5000 UNITS/ML 1ML VIAL ONE (20:32)
[2022-02-16] MEDS: HYDROcodone-ACET 5/325MG TAB PO PRN (20:56)
[2022-02-16] MEDS: APIXABAN 5 MG TAB PO SCH (22:15)
[2022-02-17] VITALS (7 sets, daily range): BP systolic 119–153; BP diastolic 70–87
[2022-02-17] MEDS: SODIUM CHLORIDE 0.9% 1,000 ML IV SCH ×3 (03:18→15:51)
[2022-02-17] MEDS: APIXABAN 5 MG TAB PO SCH ×2 (10:57→21:36)
[2022-02-17] MEDS: NICOTINE 7MG/24HR TOPICAL PATCH TD SCH (10:58)
[2022-02-17] MEDS: METOPROLOL TARTRATE 25 MG TAB PO SCH ×2 (10:58→21:45)
[2022-02-17] MEDS: HYDROcodone-ACET 5/325MG TAB PO PRN ×2 (15:50→21:37)
[2022-02-18] VITALS (7 sets, daily range): BP systolic 98–154; BP diastolic 64–90
[2022-02-18] MEDS: SODIUM CHLORIDE 0.9% 1,000 ML IV SCH ×2 (01:47→10:20)
[2022-02-18] MEDS: HYDROcodone-ACET 5/325MG TAB PO PRN (10:19)
[2022-02-18] MEDS: METOPROLOL TARTRATE 25 MG TAB PO SCH (10:19)
[2022-02-18] MEDS: APIXABAN 5 MG TAB PO SCH (10:19)
[2022-02-18] MEDS: NICOTINE 7MG/24HR TOPICAL PATCH TD SCH (10:20)
[2022-02-19] MEDS ORDERED: LISINOPRIL 5 MG TAB PO SCH (10:00)
[2022-02-23] MEDS ORDERED: APIXABAN 5 MG TAB PO SCH (22:00)
== END 2022-02-18 17:44 | disposition home or self-care (01) | DRG 197 ==
LOC: ER 10:54 → TELE 19:31 → TELE-WESTW 23:35
PROVIDERS: ADMIT Registered Nurse; ATTEND Internal Medicine
DX: I82.411 Acute embolism and thrombosis of right femoral vein (principal); I26.99 Other pulmonary embolism without acute cor pulmonale; F20.9 Schizophrenia, unspecified; I82.431 Acute embolism and thrombosis of right popliteal vein; I82.441 Acute embolism and thrombosis of right tibial vein; J44.9 Chronic obstructive pulmonary disease, unspecified; H40.9 Unspecified glaucoma; F12.90 Cannabis use, unspecified, uncomplicated; Z20.822 Contact with and (suspected) exposure to COVID-19; E78.5 Hyperlipidemia, unspecified; R91.1 Solitary pulmonary nodule; F17.210 Nicotine dependence, cigarettes, uncomplicated; Z79.01 Long term (current) use of anticoagulants; Z83.3 Family history of diabetes mellitus; Z82.49 Family history of ischemic heart disease and other diseases of the circulatory system; Z86.711 Personal history of pulmonary embolism; Z86.718 Personal history of other venous thrombosis and embolism; Z91.19 Patient's noncompliance with other medical treatment and regimen; Z88.0 Allergy status to penicillin; Z90.49 Acquired absence of other specified parts of digestive tract
CPT/HCPCS: 36415; 71045; 71275; 74178; 80053; 80061; 80307; 81001; 83036; 83880; 84443; 85025; 85379; 85610; 85730; 93005; 93306; 93971; 96361; 96374; 96375; G0378

== ENCOUNTER 2023-03-24 18:14 | Emergency (ER) | payer MEDICAID ==
[~2023-03-24] VITALS: Ht 185.4 cm; Wt 87.7 kg
[2023-03-24] MEDS ORDERED: KETOROLAC TROMETH 60MG/2ML VIAL IM ONE (19:00)
[2023-03-24 21:19] LABS: Basophils # (auto) 0.1 10 ^3/uL (0-0.2); Basophils % (auto) 0.9 % (0.0-2.0); Eosinophils # (auto) 0.7 10 ^3/uL (0-0.8); Eosinophils % (auto) 7.2 % (0.0-7.0); Hematocrit 48.6 % (41.0-53.0); Hemoglobin 16.3 g/dL (13.5-17.5); Lymphocytes % (auto) 31.8 % (10.0-50.0); Mean Corpuscular Hgb Conc. 33.6 g/dL (32.0-36.0); Mean Corpuscular Volume 92.4 fL (80.0-100.0); Monocytes # (auto) 0.6 10 ^3/uL (0-1.3); Monocytes % (auto) 6.8 % (0.0-12.0); Neutrophils % (auto) 53.3 % (37.0-80.0); Nucleated Red Blood Cells % 0.1 %; Red Blood Cells 5.27 10^6/uL (4.5-5.90); Red Cell Distribution Width 13.4 % (11.8-14.3); White Blood Cell 9.4 10^3/uL (4.4-10.8)
[2023-03-24 21:33] LABS: Alanine Aminotransferase 25 U/L (7-40); Albumin 4.7 g/dL (3.2-4.8); Alkaline Phosphatase 108 U/L (46-116); Anion Gap 8 (5-15); Aspartate Aminotransferase 20 U/L (13-40); BUN/Creatinine Ratio 15.9 (10.0-20.0); Blood Urea Nitrogen 21 mg/dL (9-23); Calcium 9.5 mg/dL (8.5-10.1); Carbon Dioxide 26 mmol/L (20-30); Chloride 106 mmol/L (98-107); Glucose 108 mg/dL (74-106); Potassium 4.3 mmol/L (3.5-5.1); Sodium 140 mmol/L (136-145)
[2023-03-24 21:34] LABS: Bilirubin, Total 0.2 mg/dL (0.2-1.0); Total Protein 7.6 g/dL (5.7-8.2)
[2023-03-24] MEDS ORDERED: RIV15T PO (21:48)
[2023-03-24] MEDS ORDERED: ACE3T PO (21:48)
[2023-03-25 00:33] VITALS: BP 104/52; PULSE 96; RESP 17; TEMP 98; O2SAT 98
[2023-03-25] MEDS ORDERED: RIVAROXABAN 15 MG TAB PO SCH ×2 (18:00)
== END 2023-03-25 00:40 | disposition home or self-care (01) ==
LOC: ER 18:14
DX: I82.491 Acute embolism and thrombosis of other specified deep vein of right lower extremity (principal); J44.9 Chronic obstructive pulmonary disease, unspecified; F20.9 Schizophrenia, unspecified; F15.90 Other stimulant use, unspecified, uncomplicated; Z98.890 Other specified postprocedural states; Z87.891 Personal history of nicotine dependence; Z88.0 Allergy status to penicillin
CPT/HCPCS: 36415; 73700; 80053; 85025; 93971; 96372; 99285; J1885

== ENCOUNTER 2023-09-13 10:15 | Emergency (ER) | payer MEDICAID ==
[~2023-09-13] VITALS: Ht 185.4 cm; Wt 87.5 kg
[~2023-09-13 10:15] MED LIST: ACE3T PO; RIV15T PO
[2023-09-13 14:40] LABS: Basophils # (auto) 0 10 ^3/uL (0-0.2); Basophils % (auto) 0.3 % (0.0-2.0); Eosinophils # (auto) 0 10 ^3/uL (0-0.8); Hematocrit 52.4 % (41.0-53.0); Hemoglobin 17.5 g/dL (13.5-17.5); Lymphocytes # (auto) 1.3 10 ^3/uL (0.4-5.4); Lymphocytes % (auto) 13.2 % (10.0-50.0); Mean Corpuscular Hemoglobin 30.5 pg (28.0-32.0); Mean Corpuscular Hgb Conc. 33.5 g/dL (32.0-36.0); Monocytes # (auto) 0.8 10 ^3/uL (0-1.3); Monocytes % (auto) 8.8 % (0.0-12.0); Neutrophils # (auto) 7.4 10 ^3/uL (1.6-8.6); Neutrophils % (auto) 77.7 % (37.0-80.0); Nucleated Red Blood Cells % 0.1 %; Red Blood Cells 5.76 10^6/uL (4.5-5.90); Red Cell Distribution Width 13.5 % (11.8-14.3); White Blood Cell 9.5 10^3/uL (4.4-10.8)
[2023-09-13 14:47] LABS: Chloride 100 mmol/L (98-107); Potassium 4.6 mmol/L (3.5-5.1); Sodium 133 mmol/L (136-145)
[2023-09-13 14:48] LABS: Anion Gap 7 (5-15); Carbon Dioxide 26 mmol/L (20-30)
[2023-09-13 14:51] LABS: INR 1.03 (0.9-1.15); Partial Thromboplastin Time 35.4 SEC (24.5-34.5); Prothrombin Time 10.8 sec (9.3-11.8)
[2023-09-13 14:53] LABS: Glucose 103 mg/dL (74-106)
[2023-09-13 14:54] LABS: BUN/Creatinine Ratio 16.1 (10.0-20.0); Blood Urea Nitrogen 27 mg/dL (9-23); Magnesium 1.8 mg/dL (1.6-2.6)
[2023-09-13] MEDS: IOHEXOL 350 MG/ML 100ML IJ ONE ×2 (21:41→23:48)
[2023-09-14 07:45] VITALS: PULSE 82; RESP 16; TEMP 98.4; O2SAT 93
[2023-09-14] MEDS: IPRATROPIUM BROM 0.5 MG/2.5ML INH SOL NEB ONE (08:18)
[2023-09-14] MEDS: ALBUTEROL SULF 2.5 MG/0.5ML(0.5%) NEB SOLN NEB ONE (08:18)
[2023-09-14] MEDS ORDERED: PRED20TA2 PO (09:13)
[2023-09-14] MEDS ORDERED: ASPI1TAB20 PO (09:13)
[2023-09-14 10:00] VITALS: BP 115/72; PULSE 82; RESP 20; O2SAT 94
== END 2023-09-14 10:41 | disposition home or self-care (01) ==
LOC: ER 10:15
DX: B34.9 Viral infection, unspecified (principal); J44.9 Chronic obstructive pulmonary disease, unspecified; F20.9 Schizophrenia, unspecified; F15.90 Other stimulant use, unspecified, uncomplicated; Z86.711 Personal history of pulmonary embolism; Z86.718 Personal history of other venous thrombosis and embolism; Z98.890 Other specified postprocedural states; Z87.891 Personal history of nicotine dependence; Z88.0 Allergy status to penicillin; Z79.899 Other long term (current) drug therapy; Z86.2 Personal history of diseases of the blood and blood-forming organs and certain disorders involving the immune mechanism
CPT/HCPCS: 36415; 71046; 71275; 74175; 80048; 83735; 83880; 85025; 85610; 85730; 94640; 99285; J7644; Q9967